=== PATIENT | female | born 1940 | race Caucasian/White ===

== ENCOUNTER 2023-11-16 09:13 | Inpatient (IN) | payer OTHER, SELFPAY ==
[2023-11-12] VITALS (8 sets, daily range): BP systolic 133–201; BP diastolic 72–116; BMI 22.8; BMI 21.6
--- NOTE | 2023-11-12 16:52 | ED.GENMED ---
History of Present Illness
General
Chief Complaint: Fall
Time Seen by Provider: 11/12/23 16:31
Travel History
Have you had any contact with someone who has COVID-19?: No
Do you have any symptoms of coronavirus? Fever > 100 degrees, chills, cough, shortness of breath, sore throat, loss of taste or smell, muscle aches, or headache?: No
History of Present Illness
History of Present Illness:
83-year-old female presents to the emergency department with family after a fall. The fall was unwitnessed but she was apparently walking her dog into a house the injury occurred. The patient can provide no details of the event. She appears quite
anxious but has essentially no recollection of what happened. Family is uncertain if she syncopized versus struck her head with retrograde amnesia. She is not on anticoagulants. She does have quite mild dementia 'Per family. She also reports
right shoulder pain and right wrist pain
Review of Systems
Review of Systems
Allergies reviewed?: Yes
All Other Systems: ROS reviewed and negative except as documented in HPI and ROS
Phy Exam
Physical Exam
Physical Exam:
GEN: Well appearing, NAD, WDWN
Eyes: PERRLA, EOMs intact, no scleral icterus
HENT: NCAT, oral mucosa moist, no JVD, no cervical adenopathy.
Lungs: CTAB, no wheezes, rales, rhonchi, normal chest wall excursion
Cardiac: RRR, no M/R/G, no peripheral edema. Radial pulses 2+ bilat
Abdomen: S, NT, ND, NABS, no masses or hepatosplenomegaly
Neuro: Alert, oriented to baseline per family, confused to year
MSK: No gross deformity or ecchymosis. No obvious injury to the right shoulder, no ecchymosis or swelling. Range of motion elicits pain. No obvious deformities to the wrist bilaterally
Skin: No rashes, petechiae. Normal color, no pallor or jaundice.
Psych: Calm, cooperative, proper hygiene
Course
Orders/Labs/Results
Orders:
Orders
11/12/23 Dinner
Cholesterol Lowering
Cholesterol Lowering: Sodium, 2 Gram
1800 robert/15 CHO Diabetic
11/12/23 16:01
CT Head W/o Iv Contrast Urgent
Comment:
Reason For Exam: fall
11/12/23 16:50
Electrocardiogram (*1) Urgent
Reason for Study: Syncope
EKG- Treatment ONCE
Morphine Sulfate 2 mg IV NOW STA
Ondansetron Injectable [Zofran] 4 mg IV NOW STA
CR Shoulder - Right Min 2 View Urgent
Comment:
Reason For Exam: fall
11/12/23 16:59
Basic Metabolic Panel Urgent
Complete Blood Count/No Diff Urgent
11/12/23 17:26
CR Wrist - Right Min 3 Views Urgent
Reason For Exam: fall
11/12/23 19:29
Urinalysis Reflex To Culture Urgent
Date Specimen was Collected: 11/12/23
Time Specimen was Collected: 19:25
Urine Microscopic Reflex Cult Urgent
11/12/23 19:32
0.9% Sodium Chloride 500 ml [Nss] 500 ml IV BOLUS
11/12/23 20:56
diazePAM [Valium Injection] 1 mg IV NOW STA
11/12/23 22:15
Add On- LAB Urgent
Tests Added?: troponin
CARDIOLOGY CONSULT Routine
Consulting Provider: Wilfred Ramos
Was physician already notified: No
Reason for consult: synocpe versus seizure vs cardiac arrythmia
11/12/23 22:16
Consult Notification Routine
Specialty to Notify: Cardiology
Consult Notification Routine
Specialty to Notify: Neurology
NEUROLOGY CONSULT Routine
Consulting Provider: Damián Johnson
Was physician already notified: No
Reason for consult: synocpe versus seizure vs cardiac arrythmia
11/12/23 22:18
Admit/Transfer Patient As Directed
Co-Sign Provider:
Level of Care: Observation services
Assign to:: Telemetry
Physician / Group: ronny lam
Diagnosis: syncope vs seizure vs cardiac arryt. scalp contusion, thrombocyotpenia
Reason for Telemetry: Arrhythmia
Date to Stop Telemetry: 11/15/23
Time to Stop Telemetry: 11:00
Reason for Hospitalization: syncope vs seizure vs cardiac arryt. scalp contusion, thrombocyotpenia
Code Status As Directed
Resuscitation Status: Do not resuscitate
Reached after discussion with pt or family/Healthcare POA: Yes
Based on pt advanced directive or healthcare POA form: Yes
Decision communicated with: per daughters
11/12/23 22:20
DNR Bracelet Application ONCE
11/12/23 23:00
Flush (0.9% Sodium Chloride) [Flush (Nss)] See Dose Instructions IV PER PROTOCOL
11/12/23 23:18
Acetaminophen [Tylenol] 650 mg PO Q4HPRN PRN
Dextrose 50%-Water [Dextrose 50% Syringe] 12.5 grams IV [id number] PRN
Glucagon [GlucaGen] 1 mg IM PRN PRN
Lorazepam [Ativan] 0.5 mg IV ONCE PRN
11/12/23 23:18
Activity As Directed
Activity Level: With Assistance
Bedside Glucose Monitoring As Directed
Frequency: AC&HS
Additional Instructions:: Change to q6h if pt on TPN, tube feeding or not eating
Neurological Checks As Directed
Frequency: q4h
Orthostatic Vital Signs As Directed
Orthostatic VS Frequency: Daily
Pneumatic Compression Sleeves As Directed
Type: Knee high
Vital Signs As Directed
Frequency: Per unit guidelines
Ot Eval And Treat Routine
Pt Eval And Treat Routine
Activity Level: As Tolerated
DX Deep Vein Thrombosis Video Routine
11/13/23 06:00
EKG [Electrocardiogram (*1)] IN AM
Reason for Study: Syncope
Echo 2D MMode Color/Doppler IN AM
Reason for Study: syncope
EEG Routine IN AM
Reason for Exam: syncope vs seizure
Cardiovascular Evaluation IN AM
Complete Blood Count/With Diff IN AM
Comprehensive Metabolic Panel IN AM
Glycohemoglobin (HgbA1c) IN AM
TSH Reflex To Free T4 IN AM
MRI Brain [MR Brain W/o & With Contrast] IN AM
Comment:
Reason For Exam: syncope
OK for patient to be off Cardiac Monitoring for MRI: Yes
Recent pill cam endoscopy?: No
Pacemaker/Defibrillator?: No
11/13/23 07:30
Insulin Aspart Corrective Low [Novolog Flexpen-Low Resistance] See Protocol SC AC
11/13/23 08:00
Anastrozole [Arimidex] 1 mg PO DAILY
Ascorbic Acid [Vitamin C] 500 mg PO DAILY
Calcium Citrate + D3 950/250mg 1 tablet PO BID
Donepezil HCl [Aricept] 10 mg PO DAILY
vitamin B complex 1 cap PO DAILY
11/13/23 18:00
Cholecalciferol (Vitamin D3) [VITAMIN D3 (cholecalciferol)] 25 mcg PO QPM
11/13/23 22:00
Atorvastatin [Lipitor] 40 mg PO HS
Lisinopril [Zestril] 10 mg PO HS
11/15/23 11:00
DC Protocol for Telemetry ONCE
Abnormal Lab Results
11/12/23 11/12/23
16:59 19:29
RBC 3.93 L 10^6/uL
(4.20-5.40)
Hct 36.5 L %
(37.0-47.0)
MCHC 32.9 L g/dL
(33.0-37.0)
Plt Count 117 L 10^3/uL
(130-400)
MPV 11.9 H fL
(7.4-10.4)
Chloride 108 H mmol/L
(98-107)
BUN 18 H mg/dl
(7-17)
Glucose 136 H mg/dl
(70-99)
Urine Ketones 1+ A
(Negative)
Leukocyte Esterase Rfl Trace A
(Negative)
11/12/23 16:59
11/12/23 16:59
Vital Signs
Initial and Last Documented VS:
Initial Vital Signs
Temp Pulse Resp BP Pulse Ox
98.1 F 90 20 201/116 99
11/12/23 15:55 11/12/23 15:55 11/12/23 15:55 11/12/23 15:55 11/12/23 15:55
Last Documented Vital Signs
Temp Pulse Resp BP Pulse Ox
98.1 F 90 18 149/92 93
11/12/23 15:55 11/12/23 20:42 11/12/23 20:42 11/12/23 23:00 11/12/23 23:00
MDM/Problems Addressed
MDM/Problems Addressed:
Patient's trauma workup is unremarkable and labs are reassuring. However on multiple attempts at reassessment the patient is unable to get herself to a standing position. She reports feeling dizzy and nauseated whenever she sits in an upright
position. She does not have any obvious nystagmus to suggest vertigo. Unclear cause, could be postconcussive in nature. Ultimately she is not suitable for discharge home thus we will admit to the hospitalist service for further management
*Critical Care Note
Total Time (30-74mins, 75-104mins- exclusive of procedures): Not Applicable
ED Attending Note
-
Portions of this chart may have been created with voice recognition software.� Occasional wrong word or��sound alike� substitutions may have occurred due to the inherent limitations of voice recognition software.
Discharge Plan
Departure
Patient Disposition: Admit
Date of Disposition: 11/12/23
Time of Disposition: 21:41
Admit to: Med/Surg
Presentation/result/management discussed w/ accepting MD/DO: Hospitalist
Discharge Problem:
Ambulatory dysfunction, Unwitnessed fall, Closed head injury
Interventions
Interventions:
*Risk Screen - Suicide Last Done: 11/12/23 15:55
*General Assessment Last Done: 11/12/23 15:55
*Neglect/Abuse Screening Last Done: 11/12/23 15:55
ED- Fall Risk Assessment Last Done: 11/12/23 18:18
ED-Musculoskeletal Assessment Last Done: 11/12/23 18:18
ED- Neurological Assessment Last Done: 11/12/23 18:18
ED-Skin Assessment Last Done: 11/12/23 18:18
[2023-11-12] MEDS: MORPHINE SULFATE 2 MG IV (17:03)
[2023-11-12] MEDS: ZOFRAN 4 MG IV (17:03)
[2023-11-12 17:17] LABS: Hematocrit 36.5 % (37.0-47.0); Mean Corp Hgb Conc. 32.9 g/dL (33.0-37.0); Mean Corpuscular Hgb 30.5 pg (27.0-31.0); Mean Corpuscular Volume 92.9 fL (81.0-99.0); Mean Platelet Volume 11.9 fL (7.4-10.4); Platelet Count 117 10^3/uL (130-400); Red Blood Cell Count 3.93 10^6/uL (4.20-5.40); Red Cell Dist. Width 13.9 % (11.5-14.5)
[2023-11-12 17:38] LABS: Blood Urea Nitrogen 18 mg/dl (7-17); Carbon Dioxide 22 mmol/L (22-30); Chloride 108 mmol/L (98-107); Estimated Creatinine Clearance 67 ml/min; Glucose 136 mg/dl (70-99); Sodium 140 mmol/L (135-145); eGFR > 60.00
[2023-11-12] MEDS: NSS 500 IV (19:40)
[2023-11-12 19:49] LABS: Urine Albumin Trace (Neg - Trace); Urine Bilirubin Negative (Negative); Urine Character Clear (Clear); Urine Color Yellow; Urine Glucose Negative (Negative); Urine Ketone 1+ (Negative); Urine Leukocyte Trace (Negative); Urine Nitrite Negative (Negative); Urine Occult Blood Negative (Negative); Urine Specific Gravity 1.015 (<1.030); Urine Urobilinogen Negative (Neg - 1+)
[2023-11-12 20:11] LABS: Urine Red Blood Cell 0-2 /HPF (0-2); Urine White Cell 0-2 /HPF (0-5)
[2023-11-12] MEDS: VALIUM INJECTION 1 MG IV (21:03)
--- NOTE | 2023-11-12 21:53 | HPS.HSE ---
Family Physician
-
Family Physician: NOT KNOW UNKNOWN - PT DOES
Chief Complaint
-
fall unwintessed syncope
History of Present Illness
83-year-old female who took a 48-hour drive from [facility]. Upon parking she got out of the car walking around with the dog. Her daughter heard a thump. Her son run to the back of the car found the mother with eye rolling, confusion lasting
approximate 45 seconds. He also noticed left pupil dilation and some mild blood to the tip of her tongue. He reports her confusion improved within about 45 seconds she was able to answer her name and where she was at. They were unaware if she had
any urinary incontinence. Patient currently is oriented to name and daughters at bedside she is also oriented to current residence and car ride today although does not remember syncopal event. Patient denies current headache, blurred vision,
fever, chills, chest pain, palpitations, shortness breath, cough, abdominal pain, nausea, vomiting, diarrhea, urinary symptoms. She has past medical history of hypertension, HLD, DM2, breast cancer, moderate dementia.
Medical History
Past Medical History
Past Medical History: Reports Other
Additional Past Medical History:
hypertension, HLD, DM2, breast cancer, moderate dementia.
Past Surgical History: Reports Other
Additional Past Surgical History:
Rotator cuff, knee surgery
Social History
Tobacco: Former Smoker
Alcohol: None
Drug: None
Personal: Single
Living: With Family
Employment: Retired
Family History
Family History: Not pertinent
Allergies / Home Medications
Allergies reflects when Allergies were last updated in [employer].
Home Medications with original date entered in [employer]
Allergy/Medication List:
Allergies
Allergy/AdvReac Type Severity Reaction Status Date / Time
No Known Allergies Allergy Verified 11/12/23 16:00
Home Medications
Calcium Citrate + D3 950/250mg 1 tab PO BID 11/12/23
acetaminophen 650 mg tablet,extended release 650 mg PO [id number] PRN mild pain 11/12/23
anastrozole 1 mg tablet 1 mg PO DAILY 11/12/23
ascorbic acid (vitamin C) 500 mg tablet (Vitamin C With Karlie Hips) 500 mg PO DAILY 11/12/23
atorvastatin 40 mg tablet 40 mg PO HS 11/12/23
cholecalciferol (vitamin D3) 25 mcg (1,000 unit) tablet (Vitamin D3) 25 mcg PO QPM 11/12/23
donepezil 10 mg tablet 10 mg PO DAILY 11/12/23
lisinopril 10 mg tablet 10 mg PO HS 11/12/23
metformin 500 mg tablet 1,000 mg PO BID 11/12/23
vitamin B complex 1 cap PO DAILY 11/12/23
vitamin E 268 mg (400 unit) capsule 268 mg PO QPM 11/12/23
Review of Systems
-
History Source: Patient and Family (Daughters at bedside, son on phone)
Constitutional: Denies Fever, Fatigue or Chills
EENT: Reports Other (Slight bite to right side of tongue, anisocoria left eye 2.5 mm, right eye 2 mm, posterior scalp contusion); Denies Sore Throat
Respiratory: Denies Cough or Trouble Breathing
Cardiac: Reports Syncope; Denies Chest Pain, Diaphoresis or Palpitations
Abdomen/GI: Denies Abdominal Pain, Nausea, Vomiting, Diarrhea, Constipated, Bloody Stools or Black Stools
: Denies Dysuria, Frequency, Flank Pain, Incontinence, Difficulty Voiding or Urgency
Musculoskeletal: Denies Joint Pain or Edema
Skin: Denies Itching or Rash
Neurological: Denies Dizzy or Headache
Endocrine: Reports No Symptoms
Hematologic/Lymphatic: Reports No Symptoms
Psych: Reports Calm
Physical Exam
Vital Signs
Vital Signs
Temp Pulse Resp BP Pulse Ox
98.1 F 90 20 201/116 99
11/12/23 15:55 11/12/23 15:55 11/12/23 15:55 11/12/23 15:55 11/12/23 15:55
Physical Exam
General: Comfortable and Conversant; No Pain or Fever
HEENT: NormoCephalic, Anicteric, PERRLA (anisocoria left eye 2.5 mm, right eye 2 mm), [place] Conjunctivae, No Ptosis and Other (Slight bite to right side of tongue, anisocoria left eye 2.5 mm, right eye 2 mm, posterior scalp contusion)
Respiratory: Clear; No Wheezes, Rales or Rhonchi
Cardiac: S1/S2 and Regular Rhythm; No Murmur, Rub, Gallop or Peripheral Edema
GI: Soft, Non Tender, Non Distended, Normal Bowel Sounds and No Hepatosplenomegaly
Genito-urinary: Deferred by me
Musculoskeletal: No Clubbing, No Cyanosis and No Edema
Skin: Warm and Dry; No Rash
Neuro: Awake, Alert, Oriented (To name, family, drives but not recent fall) and Cranial Nerves Intact; No Slurred Speech, Facial Droop or Tremors
Psych: Calm
Laboratory Results
-
11/12/23 16:59
11/12/23 16:59
Laboratory Results
Total Bilirubin Cancelled 11/12/23 16:59
AST Cancelled 11/12/23 16:59
ALT Cancelled 11/12/23 16:59
Alkaline Phosphatase Cancelled 11/12/23 16:59
Data Reviewed
-
CT Scan: Report Reviewed by me
Lab Data: Labs Reviewed by me
Impression/Plan
-
Impression/plan:
Observation telemetry
#Unwitnessed fall with scalp hematoma concern for syncope/ vs seizure versus cardiac arrhythmia given multiple PVCs
-Check orthostatic vitals
- trend troponin, check tsh
-EEG
-2D echo
-MRI brain with and without
-IV Ativan prior to MRI as patient is claustrophobic
-Consult neurology
-Consult cardiology
-PT/OT/case send consult
EKG: Sinus rhythm with PVCs 98 bpm, QTc [address] head: No acute intracranial abnormalities
Moderate diffuse cortical atrophy with moderate nonspecific white matter changes
Small midline posterior parietal scalp hematoma
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 Severe narrowing the subacromial space suggesting presence of rotator cuff pathology
Right wrist x-ray: No acute abnormalities, degenerative OA
#HTN�benign
201/116 > 134/91 when patient calm down
Continue lisinopril 10 mg daily
#DM 2
-Accu-Cheks SSI, check HgbA1c
-Hold metformin
#Acute thrombocytopenia unclear
PLT 117
follow cbc
#Dementia Hx-moderate Dx October 2022
-Continue Aricept/donepezin 10 mg daily
#HLD
check lipid profile
-Continue Lipitor 40 mg at bedtime
#Breast CA
-Patient on current tamoxifen
DVT prophylaxis
SCDs
DNR per daughter at bedside
--- NOTE | 2023-11-12 22:12 | W.PN.UPDATE ---
Update Note
Progress Note Update
This is an addendum to the H&P written by Tri Lau on 11/12/2023. Patient seen examined independently with [employer]ER.
83-year-old female past medical history moderate dementia, hypertension, diabetes, breast cancer presenting with syncopal episode while walking. Patient has no memory of the event. She was unresponsive for 45 seconds and quickly returned to normal
mental status. Son noticed left pupillary dilation, unclear if new. Patient did have tongue biting. Patient with no chest pain or shortness of breath. No prior syncopal episodes or history of seizures.
On examination patient has subtle left pupil dilation compared to right. Blood pressure initially 200 but this has spontaneously improved. Labs unremarkable. EKG shows significant number of PVCs. Syncopal episode possibly secondary to cardiac
arrhythmia versus partial seizure. Check echocardiogram, EEG, MRI brain, neurology and cardiology.
--- NOTE | 2023-11-12 23:30 | PTCARENOTE ---
Late Entry 11/12/23 0729 - Received patient from ED accompanied by her daughter. Patient was transferred directly from the stretcher to the bed. Patient had fall at home and has pain in back of head and right shoulder. Patient assessed. Patient was
medicated with Tylenol as requested. Patient on monitor in SR with 1st degree AV Block. VSS. Patient oriented to the unit. Patient verbalized an understanding to ring for all transfers. Bed alarm placed for safety. Call demarco in reach.
[2023-11-12 23:39] LABS: Troponin I 0.293 ng/ml
[2023-11-13] VITALS (7 sets, daily range): BP systolic 126–165; BP diastolic 70–92; PULSE 71–84; BMI 21.6
[2023-11-13] MEDS: TYLENOL 650 MG PO ×3 (00:06→10:15)
--- NOTE | 2023-11-13 00:42 | PTCARENOTE ---
Advised covering provider ROBBIN Aleman of positive Troponin result 0f 0.293 at 2353. Patient denies chest pain, VSS. Troponin series and EKG in AM are in place.
[2023-11-13 00:44] LABS: Glucose - Point of Care 133 mg/dl (70-99)
[2023-11-13 07:22] LABS: % Basophils 0.4 % (0-2); % Eosinophils 1.3 % (0-6); % Immature Granulocytes 0.4 % (0-0.5); % Lymphocytes 24.9 % (20.5-51.1); % Monocytes 6.8 % (1.7-9.3); % Neutrophils 66.2 % (42.2-75.2); Absolute Eosinophils 0.1 10^3/uL (0-0.7); Absolute Lymphocytes 1.7 10^3/uL (1.2-3.4); Absolute Monocytes 0.5 10^3/uL (0.1-0.6); Absolute Neutrophils 4.5 10^3/uL (1.4-6.5); Hematocrit 34.3 % (37.0-47.0); Mean Corp Hgb Conc. 32.1 g/dL (33.0-37.0); Mean Corpuscular Hgb 30.8 pg (27.0-31.0); Mean Corpuscular Volume 96.1 fL (81.0-99.0); Nucleated Red Blood Cells % 0 %; Platelet Count 111 10^3/uL (130-400); Red Blood Cell Count 3.57 10^6/uL (4.20-5.40); Red Cell Dist. Width 13.8 % (11.5-14.5); White Blood Cell Count 6.8 10^3/uL (4.8-10.8)
[2023-11-13 07:44] LABS: Troponin I 0.253 ng/ml
[2023-11-13 07:46] LABS: Glucose - Point of Care 108 mg/dl (70-99)
[2023-11-13] MEDS: NOVOLOG FLEXPEN-LOW RESISTANCE SC ×3 (07:58→16:45)
[2023-11-13 08:13] LABS: ALT (SGPT) 20 U/L (0-35); AST (SGOT) 32 U/L (14-36); Albumin 3.7 g/dl (3.5-5.0); Alkaline Phosphatase 48 U/L (38-126); Blood Urea Nitrogen 16 mg/dl (7-17); Calcium 9.4 mg/dl (8.4-10.2); Carbon Dioxide 23 mmol/L (22-30); Chloride 107 mmol/L (98-107); Estimated Creatinine Clearance 57 ml/min; Glucose 97 mg/dl (70-99); HDL Cholesterol 47 mg/dl; LDL Cholesterol, Calculated 61 mg/dl; Potassium 4.4 mmol/L (3.5-5.1); Sodium 138 mmol/L (135-145); Total Bilirubin 1.1 mg/dl (0.2-1.3); Total Cholesterol 127 mg/dl (50-199); Triglyceride 99 mg/dl (10-149); Very Low Density Lipoprotein 19 mg/dl (0-30); eGFR > 60.00
--- NOTE | 2023-11-13 08:43 | CON.NEURO ---
Neuro Assessment/Plan
Assessment
IMPRESSIONS/RECOMMENDATIONS:
Abrupt onset fall with suggested seizure-like activity and mild pupillary asymmetry with greater pupillary size on the left than on the right by 1 mm
Differential diagnosis would include convulsive syncope as well as new onset seizure
Plan
Check orthostatic blood pressures
Check lab work for potential metabolic abnormalities
Will follow MRI of brain results
Not clear at this time patient would benefit from EEG based on new discovery of myocardial infarction which may have produced convulsive syncope
Would not at this time initiate antiseizure medication
Based on discovery of possible myocardial infarction, okay from neurology standpoint to initiate heparin without bolus
May continue donepezil at this time although reconsideration of this medication based on the patient's possible seizure may be given
Will continue to follow pending results.
Consultation
Order
Date of Consultation: 11/13/23
Requesting Provider: Hospitalist
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
Subjective/Objective
Subjective Data
Date of Service: November 13, 2023
Right-Handed
Patient presented to this emergency department after a fall. The patient had no recall for the event. The patient reportedly was in her usual state of health until falling to the ground with eye rolling and subsequent confusion lasting for 45
seconds afterwards. Patient's family noted that there was an asymmetry of pupils with the left pupil 1 mm larger than the contralateral side. There is no urinary incontinence at the time. Reportedly the patient no associated symptoms although
there is a suggestion that there was a tongue bite at the tip of the tongue. Subsequently, after presenting to this hospital's emergency department, the patient was described as having right arm shaking intermittently over an hour with stress
making the shaking more likely. No prior events. No known modifying factors. The patient had been traveling for approximately 4 hours by car immediately prior to the event.
Patient has a prior history of dementia treated by her primary care provider with the use of donepezil. The last increase in this medication took place in March 2023.
Objective Data
Vital Signs
Temp Pulse Resp BP Pulse Ox
36.8 C 66 16 159/81 98
11/13/23 07:25 11/13/23 07:25 11/13/23 07:25 11/13/23 07:25 11/13/23 07:25
Lab Results
11/13/23 06:18
11/13/23 06:18
Sodium 138 mmol/L (135-145) 11/13/23 06:18
Potassium 4.4 mmol/L (3.5-5.1) 11/13/23 06:18
BUN 16 mg/dl (7-17) 11/13/23 06:18
Glucose 97 mg/dl (70-99) 11/13/23 06:18
Calcium 9.4 mg/dl (8.4-10.2) 11/13/23 06:18
LDL Cholesterol, Calc 61 mg/dl 11/13/23 06:18
Patient Allergies
No Known Allergies Allergy (Verified 11/12/23 16:00)
Review of Systems
-
Unable to obtain full review of systems at this time due to: Dementia
History Source: Patient and Family
All other systems: Reviewed and negative
Neuro: Dizzy (Described as taking place during orthostatic evaluation.); Negative Headache
Physical Exam
-
General: No Apparent Distress and Appears Stated Age
Eyes: OU Absent Papilledema, Round OU, [place] Conjunctivae and No Ptosis
HEENT: Anicteric and Moist Mucous Membranes
Neck: Full Range of Motion
Respiratory: No Dyspnea
Cardiac: No JVD
GI: Non-distended
Skin: Unremarkable
Extremities: No Clubbing, No Cyanosis and No Edema
Psych: Intact Judgement/Insight
Extended Neurological Exam
Mood & Affect: Mood Unremarkable and Affect Unremarkable
Attention Span & Concentration: Awake, Alert, Interactive and Moderate Difficulty with 2 Step Request
Memory: Able to Recall (Current location), Reduced (For current month. Unable to recall the year) and Unable to Recall Personal History
Tremor: Hand Tremor Absent and Head Tremor Absent
Involuntary Movement: None
Speech: Quality Unremarkable and Quantity Unremarkable
Cranial Nerve II: Left Eye: Pupillary Reactivity Unremarkable, Pupillary Size Unremarkable and Visual Fabian Intact
Cranial Nerve II: Right Eye: Pupillary Reactivity Unremarkable, Pupillary Size Unremarkable, Visual Fabian Intact and Smaller than Contralateral (By approximately 1 mm)
Cranial Nerves III, IV, : Extraocular Movement: Extraocular Movement Full in all Directions and No Ptosis
Cranial Nerve VII: Facial Symmetry: Normal Facial Symmetry
Cranial Nerve VIII: Hearing: Unremarkable Hearing to Normal Conversational Volume
Cranial Nerves IX, X: Palate Movement: Palate Elevation Symmetric
Cranial Nerve XI: Shoulder Shrug: Unremarkable
Cranial Nerve XII: Tongue Protusion: Midline
Muscle Strength, Overall: Full Throughout
Muscle Bulk & Tone: Bulk Unremarkable and Tone Unremarkable
Pronator Drift: No Drift in Upper Extremities
Deep Tendon Reflexes: Trace Throughout
Touch Sensation: Unremarkable
Coordination: [id number] Testing Unremarkable
Babinski Sign: Absent Bilaterally
Data Reviewed
-
Orthostatic Testing: Ordered and Report Reviewed
Labs: Report Reviewed
Reviewed with: Physician, Patient and Family
Old Records: Summarized
Medications
-
Active Medications
Generic Name Dose Route Start Last Admin
Trade Name Freq PRN Reason Stop Dose Admin
Acetaminophen 650 mg 11/12/23 23:18 11/13/23 05:16
Acetaminophen 325 Mg Tablet PO 12/10/23 23:17 650 mg
Q4HPRN PRN Administration
mild pain/MOONEY/temp> 100.4F
Anastrozole 1 mg 11/13/23 08:00
Anastrozole 1 Mg Tablet PO 12/11/23 07:59
DAILY KAMRON
Ascorbic Acid 500 mg 11/13/23 08:00
Ascorbic Acid 500 Mg Tablet PO 12/11/23 07:59
DAILY KAMRON
Atorvastatin Calcium 40 mg 11/13/23 22:00
Atorvastatin (Lipitor) 40 Mg Tablet PO 12/11/23 21:59
HS KAMRON
Calcium/Vitamin D 500 mg 11/13/23 08:00
Calcium Carbonate 500 Mg/Vitamin D 5 Mcg (200 Units) Tablet PO 12/11/23 07:59
BID KAMRON
Cholecalciferol 25 mcg 11/13/23 18:00
Cholecalciferol (Vitamin D3) 25 Mcg Tablet (1,000 Units) PO 12/11/23 17:59
QPM KAMRON
Dextrose 12.5 grams 11/12/23 23:18
Dextrose 50% (0.5 Grams/Ml) 50 Ml Syringe IV 12/10/23 23:17
[id number] PRN
hypoglycemia
Protocol
Donepezil HCl 10 mg 11/13/23 08:00
Donepezil Hcl 10 Mg Tablet PO 12/11/23 07:59
DAILY KAMRON
Glucagon 1 mg 11/12/23 23:18
Glucagon 1 Mg Vial IM 12/10/23 23:17
PRN PRN
hypoglycemia
Protocol
Insulin Aspart 0 units 11/13/23 07:30 11/13/23 07:58
Insulin Aspart Low Resistance 300 Units/3 Ml Pen.Injctr SC 12/11/23 07:29 Not Given
AC KAMRON
Protocol
Lisinopril 10 mg 11/13/23 22:00
Lisinopril 10 Mg Tablet PO 12/11/23 21:59
HS KAMRON
Lorazepam 0.5 mg 11/12/23 23:18
Lorazepam 2 Mg/Ml Vial IV 12/10/23 23:17
ONCE PRN
regional commercial sales manager to MRI
Sodium Chloride 0 flush 11/12/23 23:00
Sodium Chloride 0.9% (Flush) Syringe IV 12/10/23 22:59
PER PROTOCOL KAMRON
Sodium Chloride 0.25 ml 11/12/23 23:23
Nss (Pf) 10 Ml Vial For Ativan 0.5 Mg Dose IV
ONCE PRN
FOR MRI
Vitamin B Complex/Vitamin C 1 caplet 11/13/23 08:00
Vitamin B Complex With Vitamin C Caplet PO 12/11/23 07:59
DAILY KAMRON
Home Medications
�Medication �Instructions �Recorded
Calcium Citrate + D3 950/250mg 1 tab PO BID 11/12/23
acetaminophen 650 mg 650 mg PO [id number] PRN mild pain 11/12/23
tablet,extended release
anastrozole 1 mg tablet 1 mg PO DAILY 11/12/23
ascorbic acid (vitamin C) 500 mg 500 mg PO DAILY 11/12/23
tablet (Vitamin C With Karlie Hips)
atorvastatin 40 mg tablet 40 mg PO HS 11/12/23
cholecalciferol (vitamin D3) 25 25 mcg PO QPM 11/12/23
mcg (1,000 unit) tablet (Vitamin
D3)
donepezil 10 mg tablet 10 mg PO DAILY 11/12/23
lisinopril 10 mg tablet 10 mg PO HS 11/12/23
metformin 500 mg tablet 1,000 mg PO BID 11/12/23
vitamin B complex 1 cap PO DAILY 11/12/23
vitamin E 268 mg (400 unit) capsule 268 mg PO QPM 11/12/23
[2023-11-13 09:41] LABS: Glycohemoglobin (HgbA1c) 5.5 % (4.0-5.6)
--- NOTE | 2023-11-13 09:48 | W.PN.HOSP.TC ---
Today's Communication/Plan
-
Heparin Drip started
Cardiac cath planned for Wednesday
Assessment / Plan
Assessment / Plan
Physical Exam
General: Not in acute distress
HEENT: Normocephalic
Respiratory: Clear to Auscultation Bilaterally
Cardiac: S1/S2 and Regular Rhythm
GI: Soft, Non Tender, Non Distended, Normal Bowel Sounds
Musculoskeletal: No Cyanosis and No Edema
Skin: Warm and Dry
Neuro: Awake, Alert, Reduced memory, PERRL. Cranial Nerves 2 through 12 grossly intact (however some visual field deficit on the right side). Strength and sensation grossly intact bilaterally. Heel to dee intact bilaterally.
Psych: Calm
Assessment/Plan
#Unwitnessed fall with scalp hematoma syncope/versus seizure versus cardiac arrhythmia given multiple PVCs
#Inferoseptal Akinesis on Echocardiogram
-Possibly myocardial infarction resulting syncope
-Heparin Drip started after discussion with cardiology and neurology: okay to start without a bolus
-Previously reported to have anisocoria and tongue biting and SBP 200 mmHg
-Check orthostatic vitals signs
-EEG
-2D echo results are noted
-MRI brain with and without
-IV Ativan prior to MRI as patient is claustrophobic
-Consulted neurology, recommendations appreciated
-Consulted cardiology, recommendations appreciated
-PT/OT/case send consult
#Mild mitral stenosis on echocardiogram
#Hypertension
201/116 > 134/91 when patient calm down
Continue lisinopril 10 mg daily
#DM 2
-Accu-Cheks SSI, check HgbA1c
-Hold metformin
#Acute thrombocytopenia unclear
PLT 117
follow cbc
#Dementia Hx-moderate Dx October 2022
-Continue Aricept/donepezin 10 mg daily
#HLD
checked lipid profile
-Continue Lipitor 40 mg at bedtime
#Breast CA
-Patient on current tamoxifen
DVT prophylaxis
SCDs
DNR
Spoke to patient's daughter today inside patient's room.
Anticipated Discharge: > 48 hours
Subjective/Interval History
-
Date of Service: November 13, 2023
Patient was seen and examined. No significant pain or lightheadedness at rest when she was seen.
Objective Data
-
Labs:
Laboratory Results
11/13/23
06:18
WBC 6.8
Hgb 11.0 L
Hct 34.3 L
Plt Count 111 L
Sodium 138
Potassium 4.4
Chloride 107
Carbon Dioxide 23
BUN 16
Creatinine 0.7
Glucose 97
Calcium 9.4
Total Bilirubin 1.1
AST 32
ALT 20
Alkaline Phosphatase 48
Vital Signs:
Vital Signs
Temp Pulse Resp BP Pulse Ox
98.2 F 66 16 159/81 98
11/13/23 07:25 11/13/23 07:25 11/13/23 07:25 11/13/23 07:25 11/13/23 07:25
--- NOTE | 2023-11-13 10:03 | CON.CAR ---
Consultation
Consultation Request
Date/Time Consultation Requested: 11/13/2023
Date/Time Consultation Performed: 11/13/2023
Requesting Provider: Dr. Pillai
Performing Provider: Dr. Ramos
Reason for Consultation: Syncope
Medical History
-
Chief Complaint: Syncope
History of Present Illness:
83-year-old female with hypertension, hyperlipidemia, diabetes, previous right breast cancer, and moderate dementia presenting after syncopal episode after driving with her family for 4-1/2 hours from [place], [place]. After the car ride (she was riding
in the backseat), she got out of the car with the dog and her family heard a thud at the back of the car and found her on the ground. She had no prodromal symptoms and does not recall the event. There was tongue biting noted, causing concern for
possible seizure. The patient lives in [place], [place], and is here visiting for her granddaughter's baby shower tomorrow afternoon. The patient plans on returning back home tomorrow evening after the baby shower. The patient denies any chest pain,
shortness of breath, palpitations, lower extremity swelling, or previous syncopal events; she has no previous true cardiac history. The patient was found to have frequent PVCs on her EKG; Cardiology consulted. Patient's blood pressure on admission
was 201/116 mmHg.
Past Medical History
Past Medical History: HTN, Hypercholesterolemia and NIDDM
Past Surgical History: Other (Breast cancer excision)
Social History
Tobacco: Former Smoker (Remote)
Alcohol: None
Drug: None
Living: With Family
Employment: Retired
Family History
Family History: Reviewed & Not Pertinent
Allergies / Home Medications
Allergy/AdvReac Type Severity Reaction Status Date / Time
No Known Allergies Allergy Verified 11/12/23 16:00
�Medication �Instructions �Recorded �Confirmed �Type
Calcium Citrate + D3 950/250mg 1 tab PO BID Supplement 11/12/23 11/12/23 History
acetaminophen 650 mg 650 mg PO [id number] PRN mild pain 11/12/23 11/12/23 History
tablet,extended release
anastrozole 1 mg tablet 1 mg PO DAILY BREAST CANCER 11/12/23 11/12/23 History
ascorbic acid (vitamin C) 500 mg 500 mg PO DAILY Supplement 11/12/23 11/12/23 History
tablet (Vitamin C With Karlie Hips)
atorvastatin 40 mg tablet 40 mg PO HS Supplement 11/12/23 11/12/23 History
cholecalciferol (vitamin D3) 25 25 mcg PO QPM Supplement 11/12/23 11/12/23 History
mcg (1,000 unit) tablet (Vitamin
D3)
donepezil 10 mg tablet 10 mg PO DAILY Neurological 11/12/23 11/12/23 History
Condition
lisinopril 10 mg tablet 10 mg PO HS Blood Pressure 11/12/23 11/12/23 History
metformin 500 mg tablet 1,000 mg PO BID Diabetes 11/12/23 11/12/23 History
vitamin B complex 1 cap PO DAILY Supplement 11/12/23 11/12/23 History
vitamin E 268 mg (400 unit) capsule 268 mg PO QPM Supplement 11/12/23 11/12/23 History
Review of Systems
-
Unable to obtain full review of systems at this time due to: Dementia
History Source: Family (Daughter (Vanessa) at bedside this morning)
Physical Exam
Vital Signs
Temp Pulse Resp BP Pulse Ox
98.2 F 66 16 159/81 98
11/13/23 07:25 11/13/23 07:25 11/13/23 07:25 11/13/23 07:25 11/13/23 07:25
Lab Results
11/13/23 06:18
11/13/23 06:18
Troponin I 0.253 ng/ml H* 11/13/23 06:18
Physical Exam
General: No Apparent Distress and Comfortable
HEENT: Anicteric
Respiratory: Clear
Cardiac: Regular Rhythm and Murmur (3/6)
Breast: Deferred by me
GI: Soft
Rectal: Deferred by Provider
Musculoskeletal: No Clubbing, No Cyanosis and No Edema
Skin: Warm and Dry
Neuro: Awake and Alert
Psych: Calm
Impression / Plan
-
83-year-old female with hypertension, hyperlipidemia, diabetes, previous right breast cancer, and moderate dementia presenting after syncopal episode after driving with her family for 4-1/2 hours from [place], [place]. After the car ride (she was riding
in the backseat), she got out of the car with the dog and her family heard a thud at the back of the car and found her on the ground. She had no prodromal symptoms and does not recall the event. There was tongue biting noted, causing concern for
possible seizure. The patient lives in [place], [place], and is here visiting for her granddaughter's baby shower tomorrow afternoon. The patient plans on returning back home tomorrow evening after the baby shower. The patient denies any chest pain,
shortness of breath, palpitations, lower extremity swelling, or previous syncopal events; she has no previous true cardiac history. The patient was found to have frequent PVCs on her EKG; Cardiology consulted. Patient's blood pressure on admission
was 201/116 mmHg.
Syncope:
-Etiology unclear; differential diagnosis includes cardiac dysrhythmia versus seizure.
-Neurology consulted.
-Will obtain an echocardiogram today, given 3/6 systolic murmur auscultated on examination.
-gambling monitor revealed occasional PACs and blocked PACs (longest R-R interval 1.9 seconds).
-Continue monitor technician; patient is eager to go home tomorrow morning, if possible, to go to her granddaughter's baby shower and then to get back home in [place], [place].
Heart murmur:
-Will obtain echocardiogram today as above.
PACs/PVCs:
-gambling monitor.
Hypertension:
-The patient was hypertensive on admission with a blood pressure of 201/116 mmHg; now controlled.
-Continue current dose of lisinopril.
Hyperlipidemia:
-Continue current dose of atorvastatin.
Diabetes:
-On metformin; management as per primary team.
Data Reviewed
-
EKG: Tracing Personally Visualized and interpreted (EKG --sinus rhythm with occasional PVCs; Telemetry--occasional PVCs and blocked PACs)
CT Scan: Report Reviewed by me (No acute intracranial abnormality.)
Labs: Labs Reviewed by me and Discussed with Family (Daughter, Vanessa, at bedside.)
[2023-11-13] MEDS: B COMPLEX w/VITAMIN C 1 CAPLET PO (10:11)
[2023-11-13] MEDS: OSCAL 500 + D 500 MG PO ×2 (10:11→20:35)
[2023-11-13] MEDS: VITAMIN C 500 MG PO (10:12)
[2023-11-13] MEDS: ARIMIDEX 1 MG PO (10:12)
[2023-11-13] MEDS: ARICEPT 10 MG PO (10:12)
[2023-11-13 10:46] LABS: Erythrocyte Sed Rate 9 mm/hour (0-20)
[2023-11-13 11:10] LABS: Folate > 20.0 ng/ml (2.76-20); Vitamin B12 667 pg/ml (239-931)
[2023-11-13 11:43] LABS: Troponin I 0.348 ng/ml
[2023-11-13 11:45] LABS: Glucose - Point of Care 136 mg/dl (70-99)
[2023-11-13] MEDS: TOPROL XL 25 MG PO (11:52)
[2023-11-13] MEDS: LOW STRENGTH ASPIRIN 324 MG PO (11:52)
[2023-11-13] MEDS: ATIVAN 0.5 MG IV (11:53)
[2023-11-13] MEDS: FLUSH (NSS) 2 FLUSH IV (11:55)
[2023-11-13] MEDS: JARDIANCE 10 MG PO (12:05)
[2023-11-13 12:12] LABS: Hematocrit 34.3 % (37.0-47.0); Hemoglobin 11.4 g/dL (12.0-16.0); Mean Corp Hgb Conc. 33.2 g/dL (33.0-37.0); Mean Corpuscular Volume 93.2 fL (81.0-99.0); Mean Platelet Volume 11.6 fL (7.4-10.4); Platelet Count 122 10^3/uL (130-400); Red Blood Cell Count 3.68 10^6/uL (4.20-5.40); Red Cell Dist. Width 13.7 % (11.5-14.5); White Blood Cell Count 8.2 10^3/uL (4.8-10.8)
[2023-11-13 12:22] LABS: APTT 29.3 Sec (23.4-35.0)
--- NOTE | 2023-11-13 12:42 | CM ---
Initial assessment completed with patient and daughter, Vanessa. Patient lives alone in a 1 story home with basement and 3 steps to enter, Patient has DME in home from her father but it is packed away and she does not recall what type of DME, no
in-home services, [employer] patient was independent and drove, no psychiatric hospitalizations. After discharge patient will reside with her daughter Vanessa until she is able to live alone again. She will use [facility] [address] in [place] for pharmacy and her
PCP is Dr. Peterson.
Patient lives in [place], [place] and will be staying with her daughter Vanessa after discharge. Vanessa's address and phone # is as follows:
[address] [place] [address]
SURAJ Torrez [id number]
[phone]
[2023-11-13] MEDS: HEPARIN 25000 UNITS/250 ML IV (15:06)
[2023-11-13 16:39] LABS: Glucose - Point of Care 122 mg/dl (70-99)
[2023-11-13] MEDS: VITAMIN D3 (cholecalciferol) 25 MCG PO (17:41)
[2023-11-13 21:11] LABS: APTT 70.6 Sec (23.4-35.0)
[2023-11-13 21:30] LABS: Glucose - Point of Care 83 mg/dl (70-99)
[2023-11-13] MEDS: ZESTRIL 10 MG PO (22:49)
[2023-11-13] MEDS: LIPITOR 40 MG PO (22:49)
[2023-11-14] VITALS (7 sets, daily range): BP systolic 84–171; BP diastolic 50–91
--- NOTE | 2023-11-14 00:16 | PTCARENOTE ---
Addendum entered by Russ Mills RN 11/14/23 01:43:
Patient had Stat Labs and Ativan 0.5mg PO. Pt is sleeping at this time in no apparent distress. Advised ROBBIN Gutierrez.
Original Note:
Patient having 8/10 left upper chest pain under breast. ROBBIN Gutierrez on floor assessing.
[2023-11-14] MEDS: ATIVAN 0.5 MG PO (00:23)
--- NOTE | 2023-11-14 00:30 | PTCARENOTE ---
Stat EKG was reviewed by ROBBIN Gutierrez.
[2023-11-14 01:33] LABS: ALT (SGPT) 23 U/L (0-35); AST (SGOT) 41 U/L (14-36); Alkaline Phosphatase 64 U/L (38-126); Blood Urea Nitrogen 15 mg/dl (7-17); Calcium 10.1 mg/dl (8.4-10.2); Carbon Dioxide 25 mmol/L (22-30); Chloride 103 mmol/L (98-107); Estimated Creatinine Clearance 57 ml/min; Glucose 105 mg/dl (70-99); Magnesium 1.6 mg/dl (1.6-2.3); Potassium 3.9 mmol/L (3.5-5.1); Sodium 137 mmol/L (135-145); Total Bilirubin 1.4 mg/dl (0.2-1.3); Total Protein 6.5 g/dl (6.3-8.2); eGFR > 60.00
--- NOTE | 2023-11-14 01:40 | W.PN.UPDATE ---
Update Note
Progress Note Update
Notified by nursing that patient anxious and having chest pain. Upon assessment, pt AAOX1-2 and forgetful, unaware of why she is at the hospital. Daughter at the bedside reports patient becomes anxious at times with dementia. Patient does appear
anxious and when asked about chest pain reports having sharp pain to the left side of chest at all times. EKG - no changes. STAT troponin down from previous (1.6>>1.08). Rx 0.5mg PO Ativan. Patient now sleeping comfortably.
[2023-11-14] MEDS: TYLENOL PO (03:47)
[2023-11-14 04:13] LABS: APTT 91.5 Sec (23.4-35.0)
--- NOTE | 2023-11-14 04:41 | PTCARENOTE ---
Patient c/o pain, agitated, pulling off leads, gown, climbing out of bed. ROBBIN Gutierrez ordered PO medications; However, patient is refusing to take PO medications. ROBBIN Gutierrez aware.
--- NOTE | 2023-11-14 05:13 | PTCARENOTE ---
Restraints were ordered, but patient seems a little calmer as the sun comes up. Will hold off on restraints. ROBBIN Gutierrez aware.
[2023-11-14 07:37] LABS: Glucose - Point of Care 115 mg/dl (70-99)
[2023-11-14] MEDS: NOVOLOG FLEXPEN-LOW RESISTANCE SC ×2 (07:47→17:31)
[2023-11-14] MEDS: JARDIANCE 10 MG PO (08:57)
[2023-11-14] MEDS: ASPIR LOW (ENTERIC COATED) 81 MG PO (08:57)
[2023-11-14] MEDS: OSCAL 500 + D 500 MG PO ×2 (08:57→21:11)
[2023-11-14] MEDS: B COMPLEX w/VITAMIN C 1 CAPLET PO (08:58)
[2023-11-14] MEDS: TOPROL XL 25 MG PO (08:58)
[2023-11-14] MEDS: VITAMIN C 500 MG PO (08:58)
[2023-11-14] MEDS: ARIMIDEX 1 MG PO (08:58)
[2023-11-14] MEDS: ARICEPT 10 MG PO (08:58)
--- NOTE | 2023-11-14 08:58 | W.PN.CD ---
Today's Communication / Plan
-
-Etiology of syncope unclear, but highly concerning for a cardiac event/dysrhythmia; differential diagnosis also includes seizure (Neurology consulted--no acute findings on head CT or MRI).
-The patient has had frequent PVCs on telemetry in addition to some nonconducted P waves (with pauses of approximately 2 seconds).
-EP Cardiology to evaluate patient after cardiac catheterization tomorrow (see below); patient may need a pacemaker (pauses) versus ICD (secondary prevention).
-Transthoracic echocardiogram yesterday revealed an LVEF of 40% with mid inferoseptal akinesis and moderate mid anteroseptal hypokinesis; patient denies any previous cardiac history.
-Patient complained of some chest pain yesterday; continue aspirin and heparin drip.
-The patient will undergo cardiac catheterization tomorrow; NPO after midnight.
-Moderate dementia with poor memory--daughter (Germaine) at bedside this a.m., other daughter (Vanessa) was at bedside yesterday.
Impression / Plan
-
83-year-old female with hypertension, hyperlipidemia, diabetes, previous right breast cancer, and moderate dementia presenting after syncopal episode after driving with her family for 4-1/2 hours from [place], [place]. After the car ride (she was riding
in the backseat), she got out of the car with the dog and her family heard a thud at the back of the car and found her on the ground. She had no prodromal symptoms and does not recall the event. There was tongue biting noted, causing concern for
possible seizure. The patient lives in [place], [place], and is here visiting for her granddaughter's baby shower tomorrow afternoon. The patient plans on returning back home tomorrow evening after the baby shower. The patient denies any chest pain,
shortness of breath, palpitations, lower extremity swelling, or previous syncopal events; she has no previous true cardiac history. The patient was found to have frequent PVCs on her EKG; Cardiology consulted. Patient's blood pressure on admission
was 201/116 mmHg.
Syncope/PVCs/abnormal telemetry:
-Etiology of syncope unclear, but highly concerning for a cardiac event/dysrhythmia; differential diagnosis also includes seizure (Neurology consulted--no acute findings on head CT or MRI).
-The patient has had frequent PVCs on telemetry in addition to some nonconducted P waves (with pauses of approximately 2 seconds).
-EP Cardiology to evaluate patient after cardiac catheterization tomorrow (see below); patient may need a pacemaker (pauses) versus ICD (secondary prevention).
-Continue current dose of Toprol-XL for now.
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
-Transthoracic echocardiogram yesterday revealed an LVEF of 40% with mid inferoseptal akinesis and moderate mid anteroseptal hypokinesis; patient denies any previous cardiac history.
-Patient complained of some chest pain yesterday; continue aspirin and heparin drip.
-The patient will undergo cardiac catheterization tomorrow; NPO after midnight.
-Continue lisinopril.
-Started on Jardiance yesterday.
Mild aortic stenosis:
-Can be monitored as outpatient.
Hypertension:
-Blood pressure is mildly elevated.
-Will start Imdur 30 mg daily.
Hyperlipidemia:
-Continue current dose of atorvastatin.
Diabetes:
-On metformin; management as per primary team.
Moderate dementia with poor memory--daughter (Germaine) at bedside this a.m., other daughter (Vanessa) was at bedside yesterday.
Physical Exam
Vital Signs/Labs
Vital Signs
Temp Pulse Resp BP Pulse Ox
98.1 F 70 16 159/91 98
11/14/23 07:59 11/14/23 07:59 11/14/23 07:59 11/14/23 07:59 11/14/23 07:59
11/13/23 11/14/23 11/15/23
06:59 06:59 06:59
Actual Weight 60.781 kg
06/08/24 12:02
11/14/23 00:45
APTT 91.5 Sec (23.4-35.0) H 11/14/23 03:44
Magnesium 1.6 mg/dl (1.6-2.3) 11/14/23 00:45
Magnesium Cancelled 11/14/23 00:45
Triglycerides 99 mg/dl (10-149) 11/13/23 06:18
LDL Cholesterol, Calc 61 mg/dl 11/13/23 06:18
VLDL Cholesterol, Calc 19 mg/dl (0-30) 11/13/23 06:18
HDL Cholesterol 47 mg/dl 11/13/23 06:18
LAB Results
11/12/23 11/13/23 11/13/23
23:00 06:18 11:04
Troponin I 0.293 H* 0.253 H* 0.348 H* D
11/13/23 11/14/23
17:07 00:45
Troponin I 1.600 H* D 1.080 H* D
Physical Exam
Constitutional: No acute distress and Other (Sleeping)
Cardiovascular: Rhythm & rate is regular (Ectopy present), Pedal edema is absent, Systolic murmur present (2/6) and S1S2 is normal
Respiratory: Respiratory effort normal and Lungs clear to auscul.
GI: Soft
Neuro/Psych: Other (Sleeping)
Other: Skin (Warm, dry, intact)
Data Reviewed
-
Date of Service: November 14, 2023
EKG: Tracing Personally Visualized and interpreted (Telemetry: Sinus rhythm with transient frequent PVCs in a pattern of bigeminy, occasional nonconducted P waves)
Echo: Tracing Personally Visualized and interpreted (LVEF 40% with mid inferoseptal akinesis and mid moderate anteroseptal hypokinesis; mild .)
X-Ray/CT/US/MRI/NUC/PET: Report Reviewed by me (MRI brain--no acute finding.)
Medical Tests (PFT, Pathology etc): Discussed with Family (Daughter (Germaine) at bedside)
Labs: Labs Reviewed by me
--- NOTE | 2023-11-14 09:01 | W.PN.NEURO.1 ---
Today's Communication / Plan
-
.
Neuro Assessment/Plan
Assessment
IMPRESSIONS/RECOMMENDATIONS:
Abrupt onset fall with suggested seizure-like activity and mild pupillary asymmetry with greater pupillary size on the left than on the right by 1 mm
Differential diagnosis would include convulsive syncope
MRI of brain failed to demonstrate structural abnormalities producing symptomatology
Plan
Follow orthostatic blood pressures
Not clear at this time patient would benefit from EEG based on new discovery of myocardial infarction which may have produced convulsive syncope
Would not at this time initiate antiseizure medication
Based on discovery of possible myocardial infarction, okay from neurology standpoint to initiate heparin without bolus
May continue donepezil at this time although reconsideration of this medication based on the patient's possible seizure may be given
Will continue to follow pending results.
Subjective/Objective
Subjective Data
Date of Service: November 14, 2023
Objective Data
Vital Signs
Temp Pulse Resp BP Pulse Ox
36.7 C 70 16 159/91 98
11/14/23 07:59 11/14/23 07:59 11/14/23 07:59 11/14/23 07:59 11/14/23 07:59
Lab Results
11/13/23 12:02
11/14/23 00:45
APTT 91.5 Sec (23.4-35.0) H 11/14/23 03:44
Sodium 137 mmol/L (135-145) 11/14/23 00:45
Potassium 3.9 mmol/L (3.5-5.1) 11/14/23 00:45
BUN 15 mg/dl (7-17) 11/14/23 00:45
Glucose 105 mg/dl (70-99) H 11/14/23 00:45
Calcium 10.1 mg/dl (8.4-10.2) 11/14/23 00:45
LDL Cholesterol, Calc 61 mg/dl 11/13/23 06:18
Vitamin B12 667 pg/ml (850-339) 11/13/23 06:18
Patient Allergies
No Known Allergies Allergy (Verified 11/12/23 16:00)
Data Reviewed
-
MRI Head: Report Reviewed
Orthostatic Testing: Report Reviewed
Labs: Report Reviewed
Old Records: Summarized
Past History
Past History
ED Past Medical History: Cancer (Breast), HTN, Hypercholesterolemia, ID and Other (Syncope November 2023, dementia)
ED Past Surgical History: Orthopedic (Rotator cuff repair, knee surgery)
Social History
Tobacco: Former smoker
Personal: Single
Employment: Retired
Family History
Family History: Other (Reviewed and noncontributory)
Medications
-
Medications:
Generic Name Dose Route Start Last Admin
Trade Name Freq PRN Reason Stop Dose Admin
Acetaminophen 650 mg 11/12/23 23:18 11/13/23 10:15
Acetaminophen 325 Mg Tablet PO 12/10/23 23:17 650 mg
Q4HPRN PRN Administration
mild pain/MOONEY/temp> 100.4F
Anastrozole 1 mg 11/13/23 08:00 11/13/23 10:12
Anastrozole 1 Mg Tablet PO 12/11/23 07:59 1 mg
DAILY KAMRON Administration
Ascorbic Acid 500 mg 11/13/23 08:00 11/13/23 10:12
Ascorbic Acid 500 Mg Tablet PO 12/11/23 07:59 500 mg
DAILY KAMRON Administration
Aspirin 81 mg 11/14/23 08:00
Aspirin 81 Mg (Enteric Coated) Tablet PO 12/12/23 07:59
DAILY KAMRON
Atorvastatin Calcium 40 mg 11/13/23 22:00 11/13/23 22:49
Atorvastatin (Lipitor) 40 Mg Tablet PO 12/11/23 21:59 40 mg
HS KAMRON Administration
Calcium/Vitamin D 500 mg 11/13/23 08:00 11/13/23 20:35
Calcium Carbonate 500 Mg/Vitamin D 5 Mcg (200 Units) Tablet PO 12/11/23 07:59 500 mg
BID KAMRON Administration
Cholecalciferol 25 mcg 11/13/23 18:00 11/13/23 17:41
Cholecalciferol (Vitamin D3) 25 Mcg Tablet (1,000 Units) PO 12/11/23 17:59 25 mcg
QPM KAMRON Administration
Dextrose 12.5 grams 11/12/23 23:18
Dextrose 50% (0.5 Grams/Ml) 50 Ml Syringe IV 12/10/23 23:17
[id number] PRN
hypoglycemia
Protocol
Donepezil HCl 10 mg 11/13/23 08:00 11/13/23 10:12
Donepezil Hcl 10 Mg Tablet PO 12/11/23 07:59 10 mg
DAILY KAMRON Administration
Empagliflozin 10 mg 11/13/23 11:15 11/13/23 12:05
Empagliflozin (Jardiance) 10 Mg Tablet PO 12/11/23 11:14 10 mg
DAILY KAMRON Administration
Glucagon 1 mg 11/12/23 23:18
Glucagon 1 Mg Vial IM 12/10/23 23:17
PRN PRN
hypoglycemia
Protocol
Heparin Sodium 25,000 units in 250 mls @ 0 mls/hr 11/13/23 11:45 11/13/23 15:06
Heparin 54574 Units/250 Ml IV 250 mls
PER PROTOCOL KAMRON Administration
Protocol
Per Protocol
Insulin Aspart 0 units 11/13/23 07:30 11/14/23 07:47
Insulin Aspart Low Resistance 300 Units/3 Ml Pen.Injctr SC 12/11/23 07:29 Not Given
AC KAMRON
Protocol
Isosorbide Mononitrate 30 mg 11/14/23 08:00
Isosorbide Mononitrate 30 Mg Extended Release Tablet PO 12/12/23 07:59
DAILY KAMRON
Lisinopril 10 mg 11/13/23 22:00 11/13/23 22:49
Lisinopril 10 Mg Tablet PO 12/11/23 21:59 10 mg
HS KAMRON Administration
Metoprolol Succinate 25 mg 11/13/23 12:00 11/13/23 11:52
Metoprolol 25 Mg Extended Release Tablet PO 12/11/23 11:59 25 mg
DAILY KAMRON Administration
Sodium Chloride 0 flush 11/12/23 23:00 11/13/23 11:55
Sodium Chloride 0.9% (Flush) Syringe IV 12/10/23 22:59 2 flush
PER PROTOCOL KAMRON Administration
Sodium Chloride 0.25 ml 11/12/23 23:23
Nss (Pf) 10 Ml Vial For Ativan 0.5 Mg Dose IV
ONCE PRN
FOR MRI
Vitamin B Complex/Vitamin C 1 caplet 11/13/23 08:00 11/13/23 10:11
Vitamin B Complex With Vitamin C Caplet PO 12/11/23 07:59 1 caplet
DAILY KAMRON Administration
[2023-11-14] MEDS: IMDUR (EXTENDED RELEASE) 30 MG PO (09:02)
--- NOTE | 2023-11-14 10:54 | W.PN.ENT ---
Today's Communication
-
seen at bedside
Impression / Plan
-
MRI scan head shows radiologic mastoiditis
patient does not has clinical mastoiditis or ear infection/fluid
Requires no treatment or follow up
Subjective Data
-
asked to see patient because MRI scan read as showing mastoiditis
patient has no ear pain or change in hearing
no history of ear infections or allergies
Objective Data
-
Vital Signs
Temp Pulse Resp BP Pulse Ox
98.1 F 70 16 159/91 98
11/14/23 07:59 11/14/23 07:59 11/14/23 07:59 11/14/23 07:59 11/14/23 07:59
Intake & Output
11/13/23 11/14/23 11/15/23
06:59 06:59 06:59
Intake:
Oral fluids 720 / 720
Output:
Urine, Voided 675 / 675
Other:
How many times incontinent 1
SATURATED amount urine
Lab Results
11/13/23 12:02
11/14/23 00:45
APTT 91.5 Sec (23.4-35.0) H 11/14/23 03:44
Calcium 10.1 mg/dl (8.4-10.2) 11/14/23 00:45
Magnesium 1.6 mg/dl (1.6-2.3) 11/14/23 00:45
Magnesium Cancelled 11/14/23 00:45
Total Bilirubin 1.4 mg/dl (0.2-1.3) H 11/14/23 00:45
AST 41 U/L (14-36) H 11/14/23 00:45
ALT 23 U/L (0-35) 11/14/23 00:45
Alkaline Phosphatase 64 U/L (38-126) 11/14/23 00:45
Triglycerides 99 mg/dl (10-149) 11/13/23 06:18
LDL Cholesterol, Calc 61 mg/dl 11/13/23 06:18
VLDL Cholesterol, Calc 19 mg/dl (0-30) 11/13/23 06:18
HDL Cholesterol 47 mg/dl 11/13/23 06:18
Urine Color Yellow 11/12/23 19:29
Urine Clarity Clear (Clear) 11/12/23 19:29
Urine pH 6.0 (5.0-9.0) 11/12/23 19:29
Ur Specific [place] 1.015 (<1.030) 11/12/23 19:29
Urine Ketones 1+ (Negative) A 11/12/23 19:29
Physical Exam
-
ears clear without infection or fluid
no drainage
Chest: Clear
Respiratory: Clear
Data Reviewed
-
Radiology Results: Report Reviewed
[2023-11-14 11:16] LABS: APTT 114.6 Sec (23.4-35.0)
[2023-11-14 12:14] LABS: Glucose - Point of Care 179 mg/dl (70-99)
--- NOTE | 2023-11-14 12:18 | CON.MD ---
Consultation - Medical
-
chief complaint: right mastoiditis on MRI scanHistory of present illness: This patient is an 83-year-old woman from [place] who rode in the back of a car for 4-1/2 hours to come to her granddaughters baby shower. As she got out of the car she
passed out and was admitted to [facility] for workup. MRI scan showed evidence of right mastoiditis according to the reading. The patient denies ear pain or drainage. She has not noted a significant change in her hearing. She has no
history of ear infections or fluid in the ears. She has not had vertigo. She is feeling good otherwise. I was asked to see the patient regarding the mastoiditis seen on the MRI scan.
Past medical history:
Allergies: No known drug allergies
Home medications:
Acetaminophen 650 mg p.o. every 12 hours as needed
Anastrozole 1 mg p.o. daily
As sorbic acid 500 mg p.o. daily
Atorvastatin 40 mg p.o. daily
Calcium citrate D3 950/250 mg 1 tablet p.o. twice daily
Cholecalciferol vitamin D3 25 mcg p.o. daily
Donepezil 10 mg p.o. daily
Lisinopril 10 mg p.o. nightly
Metformin 1000 mg p.o. twice daily
Vitamin B complex 1 cap p.o. daily
Vitamin EE 268 mg p.o. every afternoon
Medical problems:
Closed head injury, unwitnessed fall, ambulatory dysfunction, hypertension, hypercholesterolemia, [id number] diabetes mellitus,
Hospitalizations: The patient is currently hospitalized for an unwitnessed loss of consciousness
Family history: Asked and is noncontributory for this problem
Review of systems: Negative for ear pain or drainage, negative for change in hearing, negative for vertigo, negative for history of ear infections or fluid in the ears, negative for significant history of allergies
Physical examination:
Head atraumatic and normocephalic
Eyes extraocular movements are intact, pupils are equal and reactive to light and accommodation
Nose: Clear without infection
Ears show clear eardrums and ear canals. She has a small amount of wax which is not obstructive. There is no infection. No drainage is noted. There is no evidence of fluid in the ears.
Mouth: Clear mucosa without evidence of bruxism and tongue thrust
Cranial nerves II through XII intact
Thyroid gland: Normal to palpation
Salivary glands: Normal to palpation without evidence of swelling or infection
Skin: Normal tone and color
Voice good volume and tone
Neck: Supple without adenopathy or masses
MRI scan: The MRI scan showed a small amount of signal intensity within the mastoid cavity consistent with possible mucosal swelling versus fluid. This resulted in only partial opacification of the mastoid.
Impression: This patient was found to have mastoiditis on MRI scan. The patient does not show evidence of ear infection or fluid. There is no evidence of clinical mastoiditis. This is radiologic mastoiditis which is different and requires no
treatment without clinical signs or symptoms.
Plan: Observe the patient. No need for treatment for the radiologic diagnosis of mastoiditis on the right side an MRI scan. No further follow-up is required.
--- NOTE | 2023-11-14 13:14 | W.PN.HOSP.TC ---
Today's Communication/Plan
-
Continue Heparin Drip
Cardiac Cath tomorrow
NPO after midnight
Assessment / Plan
Assessment / Plan
Physical Exam
General: Not in acute distress
HEENT: Normocephalic
Respiratory: Clear to Auscultation Bilaterally
Cardiac: S1/S2 and Regular Rhythm
GI: Soft, Non Tender, Non Distended, Normal Bowel Sounds
Musculoskeletal: No Cyanosis and No Edema
Skin: Warm and Dry
Neuro: Awake, Alert, Reduced memory, PERRL. Cranial Nerves 2 through 12 grossly intact. Strength and sensation grossly intact bilaterally. Heel to dee intact bilaterally.
Psych: Calm
Assessment/Plan
#Unwitnessed fall with scalp hematoma syncope/versus seizure versus cardiac arrhythmia given multiple PVCs
#Inferoseptal Akinesis on Echocardiogram
#Frequent Premature Ventricular Contractions and Pauses on Tele
-Possibly myocardial infarction resulting syncope
-Heparin Drip (without initial bolus) started after discussion with cardiology and neurology
-Continue Aspirin
-Prior to arrival was reported to have anisocoria and tongue biting and SBP 200 mmHg
-Follow orthostatic vitals signs
-EEG of unclear benefit as per neuro given the fact that patient is suspected to have had myocardial infarction which may have produced convulsive syncope
-2D echo results are noted
-MRI brain without any structural causes that would produce patient's presenting symptoms
-Consulted neurology, recommendations appreciated
-Consulted cardiology, recommendations appreciated
-PT/OT/case send consult
-Cardiac cath tomorrow
-NPO after midnight
#Mild mitral stenosis on echocardiogram
#Hypertension
-BP was 201/116 initially
-Continue Lisinopril 10 mg daily
#DM 2
-Accu-Cheks SSI, check HgbA1c
-Hold metformin
#Acute thrombocytopenia unclear
-Platelets 117-->111-->122
-Monitor CBC
#Dementia Hx-moderate Dx October 2022
-Continue Aricept/Donepezil 10 mg daily
#Hyperlipidemia
-Continue Lipitor 40 mg at bedtime
#Breast Cancer
-Patient on current tamoxifen
DVT prophylaxis
SCDs
DNR
Spoke to patient's daughter today inside patient's room.
Anticipated Discharge: > 48 hours
Subjective/Interval History
-
Date of Service: November 14, 2023
Patient was seen and examined. She was reported to have been agitated and confused overnight.
Objective Data
-
Labs:
Laboratory Results
11/14/23 11/14/23 11/14/23
00:45 03:44 10:17
APTT 91.5 H 114.6 H
Sodium 137
Potassium 3.9
Chloride 103
Carbon Dioxide 25
BUN 15
Creatinine 0.7
Glucose 105 H
Calcium 10.1
Total Bilirubin 1.4 H
AST 41 H
ALT 23
Alkaline Phosphatase 64
11/14/23
17:30
APTT Pending
Sodium
Potassium
Chloride
Carbon Dioxide
BUN
Creatinine
Glucose
Calcium
Total Bilirubin
AST
ALT
Alkaline Phosphatase
Vital Signs:
Vital Signs
Temp Pulse Resp BP Pulse Ox
97.7 F 76 16 98/60 96
11/14/23 11:59 11/14/23 11:59 11/14/23 11:59 11/14/23 11:59 11/14/23 11:59
I&O
11/13/23 11/14/23 11/15/23
06:59 06:59 06:59
Intake Total 720 / 720
Output Total 675 / 675
Balance 45 / 45
[2023-11-14] MEDS: NOVOLOG FLEXPEN-LOW RESISTANCE 1 UNITS SC (14:34)
[2023-11-14] MEDS: TYLENOL 650 MG PO (17:13)
[2023-11-14] MEDS: VITAMIN D3 (cholecalciferol) 25 MCG PO (17:13)
[2023-11-14 17:28] LABS: Glucose - Point of Care 128 mg/dl (70-99)
[2023-11-14 18:21] LABS: APTT 90.9 Sec (23.4-35.0)
[2023-11-14] MEDS: ZESTRIL PO (21:11)
[2023-11-14] MEDS: LIPITOR 40 MG PO (21:11)
[2023-11-14 22:11] LABS: Glucose - Point of Care 184 mg/dl (70-99)
[2023-11-14] MEDS: NSS 1000 IV (22:20)
[2023-11-15] VITALS (16 sets, daily range): BP systolic 88–160; BP diastolic 47–83; PULSE 68–75; O2SAT 94
[2023-11-15 00:04] LABS: APTT 114.8 Sec (23.4-35.0)
[2023-11-15] MEDS: HEPARIN 25000 UNITS/250 ML IV (00:16)
[2023-11-15 06:41] LABS: Hematocrit 31.8 % (37.0-47.0); Hemoglobin 10.9 g/dL (12.0-16.0); Mean Corp Hgb Conc. 34.3 g/dL (33.0-37.0); Mean Corpuscular Hgb 31.1 pg (27.0-31.0); Mean Corpuscular Volume 90.9 fL (81.0-99.0); Mean Platelet Volume 11.8 fL (7.4-10.4); Platelet Count 103 10^3/uL (130-400); Red Cell Dist. Width 13.8 % (11.5-14.5)
[2023-11-15 06:52] LABS: APTT 103.6 Sec (23.4-35.0)
[2023-11-15 07:33] LABS: ALT (SGPT) 19 U/L (0-35); AST (SGOT) 30 U/L (14-36); Albumin 3.5 g/dl (3.5-5.0); Alkaline Phosphatase 54 U/L (38-126); Blood Urea Nitrogen 21 mg/dl (7-17); Calcium 9.6 mg/dl (8.4-10.2); Carbon Dioxide 23 mmol/L (22-30); Chloride 105 mmol/L (98-107); Estimated Creatinine Clearance 44 ml/min; Glucose 98 mg/dl (70-99); Magnesium 1.8 mg/dl (1.6-2.3); Potassium 3.6 mmol/L (3.5-5.1); Sodium 136 mmol/L (135-145); Total Bilirubin 1.2 mg/dl (0.2-1.3); Total Protein 5.7 g/dl (6.3-8.2); eGFR > 60.00
[2023-11-15 07:51] LABS: Glucose - Point of Care 109 mg/dl (70-99)
[2023-11-15] MEDS: NOVOLOG FLEXPEN-LOW RESISTANCE SC (08:00)
--- NOTE | 2023-11-15 08:21 | W.PN.HOSP.TC ---
Today's Communication/Plan
-
NPO for cardiac cath
Assessment / Plan
Assessment / Plan
Physical Exam
General: Not in acute distress
HEENT: Normocephalic
Respiratory: Clear to Auscultation Bilaterally
Cardiac: S1/S2 and Regular Rhythm
GI: Soft, Non Tender, Non Distended, Normal Bowel Sounds
Musculoskeletal: No Cyanosis and No Edema
Skin: Warm and Dry
Neuro: Awake, Alert, Reduced memory, PERRL. Cranial Nerves 2 through 12 grossly intact. Strength and sensation grossly intact bilaterally. Heel to dee intact bilaterally.
Psych: Calm
Assessment/Plan
#Unwitnessed fall with scalp hematoma syncope/versus seizure versus cardiac arrhythmia given multiple PVCs
#Inferoseptal Akinesis on Echocardiogram
#Frequent Premature Ventricular Contractions and Pauses on Tele
-Possibly myocardial infarction resulting syncope; patient fell backward and bit tongue on way down per daughter
-Heparin Drip (without initial bolus) started after discussion with cardiology and neurology
-Continue Aspirin
-Follow orthostatic vitals signs
-EEG of unclear benefit as per neuro given the fact that patient is suspected to have had myocardial infarction which may have produced convulsive syncope
-2D echo results are noted
-MRI brain without any structural causes that would produce patient's presenting symptoms
-Consulted neurology, recommendations appreciated
-Consulted cardiology, recommendations appreciated
-Cardiac cath today
-NPO after midnight
#Mild mitral stenosis on echocardiogram
#Hypertension
-BP was 201/116 initially
-Continue Lisinopril 10 mg daily
#DM 2
-Accu-Cheks SSI, check HgbA1c
-Hold metformin
#Acute thrombocytopenia unclear
-Platelets 117-->111-->122
-Monitor CBC
#Dementia Hx-moderate Dx October 2022
-Continue Aricept/Donepezil 10 mg daily
#Hyperlipidemia
-Continue Lipitor 40 mg at bedtime
#Breast Cancer
-Patient on current tamoxifen
DVT prophylaxis
SCDs
DNR
Spoke to patient's daughter today inside patient's room.
Anticipated Discharge: 24 - 48 hours
Subjective/Interval History
-
Date of Service: November 15, 2023
feeling anxious about being here
no chest pain
Objective Data
-
Labs:
Laboratory Results
11/14/23 11/15/23
23:23 06:23
WBC 6.0
Hgb 10.9 L
Hct 31.8 L
Plt Count 103 L
APTT 114.8 H 103.6 H
Sodium 136
Potassium 3.6
Chloride 105
Carbon Dioxide 23
BUN 21 H
Creatinine 0.9
Glucose 98
Calcium 9.6
Total Bilirubin 1.2
AST 30
ALT 19
Alkaline Phosphatase 54
Vital Signs:
Vital Signs
Temp Pulse Resp BP Pulse Ox
97.8 F 66 16 160/83 95
11/15/23 07:43 11/15/23 07:43 11/15/23 07:43 11/15/23 07:43 11/15/23 07:43
I&O
11/14/23 11/15/23 11/16/23
06:59 06:59 06:59
Intake Total 720 / 720 1740 / 1740
Output Total 675 / 675 1205 / 1205
Balance 45 / 45 535 / 535
Review of Systems
-
History Source: Patient
All other systems: Reviewed and negative
Physical Exam
-
General: No Apparent Distress and Other (emotional)
HEENT: PERRLA
Respiratory: Clear to Auscultation; Negative Wheezes
Cardiac: Regular Rhythm and S1/S2
GI: Soft and Nontender
Musculoskeletal: No Edema
Skin: Warm and Dry; Negative Rash
Neuro: AO x 3
Psych: Anxious
Data Reviewed
-
Diagnostic Radiology: Report Reviewed by me
Labs: Labs Reviewed by me
[2023-11-15] MEDS: JARDIANCE 10 MG PO (09:38)
[2023-11-15] MEDS: ASPIR LOW (ENTERIC COATED) 81 MG PO (09:38)
[2023-11-15] MEDS: B COMPLEX w/VITAMIN C 1 CAPLET PO (09:38)
[2023-11-15] MEDS: VITAMIN C 500 MG PO (09:38)
[2023-11-15] MEDS: IMDUR (EXTENDED RELEASE) 30 MG PO (09:38)
[2023-11-15] MEDS: ARICEPT 10 MG PO (09:38)
[2023-11-15] MEDS: TOPROL XL 25 MG PO (09:40)
[2023-11-15] MEDS: OSCAL 500 + D 500 MG PO ×2 (09:40→20:56)
[2023-11-15] MEDS: ARIMIDEX 1 MG PO (09:40)
--- NOTE | 2023-11-15 11:20 | W.PN.CD ---
Today's Communication / Plan
-
Cardiac catheterization to clarify coronary anatomy.
EP to see post cath (PPM vs. ICD?).
Impression / Plan
-
Impression/Plan: 83-year-old female with hypertension, hyperlipidemia, diabetes, previous right breast cancer, and moderate dementia presenting after syncopal episode after driving with her family for 4-1/2 hours from [place], [place], found have
hypertensive urgency (SBP > 200 mmHg), elevated troponin and new cardiomyopathy.
#Syncope/PVCs/abnormal telemetry:
-Acute.
-Etiology of syncope unclear, but highly concerning for a cardiac event/dysrhythmia; differential diagnosis also includes seizure (Neurology consulted--no acute findings on head CT or MRI).
-The patient has had frequent PVCs on telemetry in addition to some nonconducted P waves (with pauses of approximately 2 seconds).
-Continue current dose of Toprol-XL for now.
-EP Cardiology to evaluate patient after cardiac catheterization; patient may need a pacemaker (pauses) versus ICD (secondary prevention).
#NSTEMI
-Acute.
-Troponin peaked at 1.600.
-TTE shows regional wall motion abnormalities.
-Patient had chest pain overnight per notes, does not recall on interview.
-Continue metoprolol, isosorbide mononitrate, aspirin, atorvastatin.
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
-New diagnosis.
-Transthoracic echocardiogram yesterday revealed an LVEF of 40% with mid inferoseptal akinesis and moderate mid anteroseptal hypokinesis; patient denies any previous cardiac history.
-Patient complained of some chest pain yesterday; continue aspirin and heparin drip.
-Continue lisinopril, metoprolol and empagliflozin.
-Catheterization to clarify coronary anatomy.
#Mild aortic stenosis:
-New diagnosis.
-Can be monitored as outpatient.
#Hypertension:
-Chronic, stable.
-Isosorbide mononitrate added yesterday.
-Hypotensive last night.
-Lisinopril held this morning.
#Hyperlipidemia
-Chronic, stable.
-Continue current dose of atorvastatin.
#Diabetes
-Chronic, stable.
-On metformin; management as per primary team.
#Moderate dementia with poor memory
-Chronic, stable.
-Daughters typically present, provide consent and background information.
-Continue donepezil.
Subjective/Interval History:
Nursing documents chest pain overnight.
Patient was highly anxious and appears to .
Hypotensive to 82/50 on 11/14/2023 @ 21:11.
Started on isosorbide mononitrate yesterday.
DATA:
CT Chest, 11/12/2023:
IMPRESSION:
There are no acute intracranial abnormalities.
There is moderate diffuse cortical atrophy with moderate nonspecific white matter changes as described above.
There is small midline posterior parietal scalp hematoma.
MRI Brain, 11/13/2023:
IMPRESSION:
There are no focal or acute intracranial abnormalities.
There is moderate cortical and cerebellar atrophy with extensive nonspecific white matter changes as described above.
Right mastoiditis.
TTE, 11/13/2023:
CONCLUSIONS
Left ventricular ejection fraction is approximately 50%. Inferoseptal akinesis.
Moderate mid anteroseptal hypokinesis.
Normal right ventricular size and function.
Mild aortic stenosis; peak/mean gradients 9/5 mmHg, calculated GIRISH 1.9 cm2.
Mild tricuspid regurgitation. Estimated pulmonary artery pressure of 35-40
mmHg.
No prior study available for comparison.
Physical Exam
Vital Signs/Labs
Vital Signs
Temp Pulse Resp BP Pulse Ox
36.6 C 66 16 160/83 95
11/15/23 07:43 11/15/23 07:43 11/15/23 07:43 11/15/23 09:40 11/15/23 07:43
11/13/23 11/14/23 11/15/23
11:59 11:59 11:59
Actual Weight 60.781 kg
11/15/23 06:23
11/15/23 06:23
APTT 103.6 Sec (23.4-35.0) H 11/15/23 06:23
Magnesium 1.8 mg/dl (1.6-2.3) 11/15/23 06:23
Triglycerides 99 mg/dl (10-149) 11/13/23 06:18
LDL Cholesterol, Calc 61 mg/dl 11/13/23 06:18
VLDL Cholesterol, Calc 19 mg/dl (0-30) 11/13/23 06:18
HDL Cholesterol 47 mg/dl 11/13/23 06:18
LAB Results
11/12/23 11/13/23 11/13/23
23:00 06:18 11:04
Troponin I 0.293 H* 0.253 H* 0.348 H* D
11/13/23 11/14/23
17:07 00:45
Troponin I 1.600 H* D 1.080 H* D
Physical Exam
Constitutional: No acute distress and Comfortable
EENT: Anicteric and Moist mucous membranes
Cardiovascular: Rhythm & rate is regular, Pedal edema is absent, JVD pressure is normal, Systolic murmur present and S1S2 is normal
Respiratory: Respiratory effort normal, Lungs clear to auscul., Wheeze Absent, Crackles Absent and Rhonchi Absent
GI: Soft, Distention absent, Flat, Non tender and Normal bowel sounds
Neuro/Psych: Alert and Oriented (to self.)
Data Reviewed
-
Date of Service: November 15, 2023
Medical Decision Making: Reviewed Test Results, Test Interpretation and Review of Case with other Provider
EKG: Tracing Personally Visualized and interpreted and Report Reviewed by me
Echo: Report Reviewed by me
X-Ray/CT/US/MRI/NUC/PET: Image Personally Visualized and interpreted and Report Reviewed by me
Labs: Labs Reviewed by me
--- NOTE | 2023-11-15 11:41 | PTCARENOTE ---
pt sent down for cardiac cath this afternoon. sent with chart and SCDS. heparin gtt and fluids taken down per team who came and got patient. pt daughter went down at bedside to sign consent for procedure. pt Q6 accuchecks due to being NPO for
procedure. pt took '6' pills at a time with 'room temp propell' at bedside. this is her morning routine and is cooperative if done this way. pt was aaox1 and thought it was winter, pleasant with this nurse.
--- NOTE | 2023-11-15 12:02 | ITS.CL.CATH ---
Cardiology Manager - Catheterization
Cardiac Catheterization
Procedure Report:
CARDIAC CATHETERIZATION REPORT
Date of Procedure: 11/15/2023
Referring: Wilfred Ramos M.D.
INDICATION: Troponin elevation, systolic cardiomyopathy, concern for non-ST elevation myocardial infarction in the context of syncope.
PROCEDURE:
1. Left heart catheterization
2. Coronary angiography.
ACCESS:
6 Khmer right radial artery.
CATHETERS:
1. 5 Khmer JR4.
2. 5 Khmer JL 3.5.
HEMODYNAMIC DATA
Weight (kg): 60.8
AO (s/d/x, mmHg): 121/64/82
LV (s/x mmHg): 136/9
LEFT VENTRICULOGRAPHY: Not performed.
CORONARY ANGIOGRAPHY
Dominance: Right.
Left Main: Normal size, bifurcating vessel. There is no coronary artery disease.
LAD: Normal size vessel giving rise to 1 significant diagonal. There are minor luminal irregularities in the proximal vessel.
Ramus: Congenitally absent.
Circumflex: Large size, nondominant vessel giving rise to 1 large marginal which subsequently divides into several daughter branches. There is no coronary artery disease.
RCA: Normal size, dominant vessel. There is no coronary artery disease.
INTERVENTION(S)
None.
Closure Device: Vascular band.
Radiation (mGy): 153.73
DAP (cm2.Gy): 14.4641
Fluoroscopy time (minutes): 2.1
Sedation time (minutes): 26
CONCLUSIONS
1. Right dominant circulation with mild luminal irregularities in the proximal LAD but no obstructive coronary artery disease.
2. Normal filling pressures (LVEDP = 9 mmHg at 60.8 kg).
3. No obvious coronary/ischemic cause for syncope.
RECOMMENDATIONS:
1. Expectant management after cardiac catheterization via right radial approach.
2. Limited weight bearing on the right wrist for one week.
3. Consultation with electrophysiology regarding need for permanent pacemaker versus ICD versus EP study.
Copy to: Wilfred Ramos M.D.
Russ Zaidi DO, FACC, FACP
--- NOTE | 2023-11-15 12:46 | PTCARENOTE ---
Addendum entered by Jodi Coe RN 11/15/23 14:37:
R band removed per protocol as well as desired goal of air. 2x2 and tegaderm applied to site.
Original Note:
pt with R band on RUE. drawing air to begin at 1300. pt has sling intact to keep arm still and daughter remains at bedside. post cath assessment added to worklist.
[2023-11-15 12:54] LABS: Glucose - Point of Care 124 mg/dl (70-99)
[2023-11-15] MEDS: MAGNESIUM SULFATE 100 IV (15:10)
[2023-11-15] MEDS: KCL 40 MEQ PO (15:10)
[2023-11-15] MEDS: NSS 500 IV (16:45)
--- NOTE | 2023-11-15 16:47 | PTCARENOTE ---
pt with BP of 88/50. made aware. NSS bolus ordered. this nurse administered through L forearm IV site. pt back in bed after being in the chair and working with PT/OT this afternoon.
[2023-11-15 17:15] LABS: Glucose - Point of Care 164 mg/dl (70-99)
[2023-11-15] MEDS: VITAMIN D3 (cholecalciferol) 25 MCG PO (17:15)
[2023-11-15] MEDS: NOVOLOG FLEXPEN-LOW RESISTANCE 1 UNITS SC (17:16)
[2023-11-15] MEDS: ZESTRIL 10 MG PO (20:56)
[2023-11-15] MEDS: LIPITOR 40 MG PO (20:57)
[2023-11-15 21:28] LABS: Glucose - Point of Care 118 mg/dl (70-99)
[2023-11-16] VITALS (17 sets, daily range): BP systolic 102–156; BP diastolic 60–94; BMI 21.2
[2023-11-16 06:37] LABS: Hematocrit 33.1 % (37.0-47.0); Hemoglobin 10.9 g/dL (12.0-16.0); Mean Corp Hgb Conc. 32.9 g/dL (33.0-37.0); Mean Platelet Volume 11.6 fL (7.4-10.4); Platelet Count 102 10^3/uL (130-400); Red Blood Cell Count 3.52 10^6/uL (4.20-5.40); Red Cell Dist. Width 13.7 % (11.5-14.5); White Blood Cell Count 5.9 10^3/uL (4.8-10.8)
[2023-11-16 06:54] LABS: ALT (SGPT) 22 U/L (0-35); AST (SGOT) 34 U/L (14-36); Albumin 3.4 g/dl (3.5-5.0); Alkaline Phosphatase 55 U/L (38-126); Blood Urea Nitrogen 20 mg/dl (7-17); Calcium 8.7 mg/dl (8.4-10.2); Carbon Dioxide 23 mmol/L (22-30); Chloride 108 mmol/L (98-107); Estimated Creatinine Clearance 57 ml/min; Glucose 94 mg/dl (70-99); Potassium 4.1 mmol/L (3.5-5.1); Sodium 138 mmol/L (135-145); Total Bilirubin 1.1 mg/dl (0.2-1.3); Total Protein 5.8 g/dl (6.3-8.2); eGFR > 60.00
[2023-11-16 06:55] LABS: Glucose - Point of Care 102 mg/dl (70-99)
[2023-11-16] MEDS: NOVOLOG FLEXPEN-LOW RESISTANCE SC ×3 (07:04→16:38)
[2023-11-16] MEDS: OSCAL 500 + D 500 MG PO ×2 (08:26→20:15)
[2023-11-16] MEDS: TOPROL XL 25 MG PO (08:26)
[2023-11-16] MEDS: VITAMIN C 500 MG PO (08:26)
[2023-11-16] MEDS: ARIMIDEX 1 MG PO (08:26)
[2023-11-16] MEDS: JARDIANCE 10 MG PO (08:27)
[2023-11-16] MEDS: B COMPLEX w/VITAMIN C 1 CAPLET PO (08:27)
[2023-11-16] MEDS: ARICEPT 10 MG PO (08:27)
[2023-11-16] MEDS: ASPIR LOW (ENTERIC COATED) 81 MG PO (08:27)
[2023-11-16] MEDS: IMDUR (EXTENDED RELEASE) 30 MG PO (08:28)
--- NOTE | 2023-11-16 08:43 | W.PN.HOSP.TC ---
Today's Communication/Plan
-
F/U EP recs
Assessment / Plan
Assessment / Plan
Physical Exam
General: Not in acute distress
HEENT: Normocephalic
Respiratory: Clear to Auscultation Bilaterally
Cardiac: S1/S2 and Regular Rhythm
GI: Soft, Non Tender, Non Distended, Normal Bowel Sounds
Musculoskeletal: No Cyanosis and No Edema
Skin: Warm and Dry
Neuro: Awake, Alert, Reduced memory, PERRL. Cranial Nerves 2 through 12 grossly intact. Strength and sensation grossly intact bilaterally. Heel to dee intact bilaterally.
Psych: Calm
Cardiac Cath 11/15/23
CONCLUSIONS
1. Right dominant circulation with mild luminal irregularities in the proximal LAD but no obstructive coronary artery disease.
2. Normal filling pressures (LVEDP = 9 mmHg at 60.8 kg).
3. No obvious coronary/ischemic cause for syncope.
RECOMMENDATIONS:
1. Expectant management after cardiac catheterization via right radial approach.
2. Limited weight bearing on the right wrist for one week.
3. Consultation with electrophysiology regarding need for permanent pacemaker versus ICD versus EP study.
TTE 11/13/23
CONCLUSIONS
Left ventricular ejection fraction is approximately 50%. Inferoseptal akinesis.
Moderate mid anteroseptal hypokinesis.
Normal right ventricular size and function.
Mild aortic stenosis; peak/mean gradients 9/5 mmHg, calculated GIRISH 1.9 cm2.
Mild tricuspid regurgitation. Estimated pulmonary artery pressure of 35-40
mmHg.
No prior study available for comparison.
BRAIN MRI 11/13/23
IMPRESSION:
There are no focal or acute intracranial abnormalities.
There is moderate cortical and cerebellar atrophy with extensive nonspecific white matter changes as described above.
Right mastoiditis
Assessment/Plan
#Unwitnessed fall concern for cardiac arrhythmia given multiple PVCs
#Inferoseptal Akinesis on Echocardiogram
#Frequent Premature Ventricular Contractions and Pauses on Tele
-s/p heparin gtt initiation (cleared by neurology) and cardiac cath on 11/14 without obstructive disease
-Continue Aspirin
-EEG of unclear benefit as per neuro given the fact that patient is suspected to have had myocardial infarction which may have produced convulsive syncope
-TTE results above
-MRI brain without any structural causes that would produce patient's presenting symptoms
-Consulted neurology, recommendations appreciated
-Consulted cardiology, recommendations appreciated
-EP consult today
#Chest discomfort this morning
-cardiac cath without obstructive disease
-trial of maalox
#Mild mitral stenosis on echocardiogram
#Hypertension
-BP was 201/116 initially
-Continue Lisinopril 10 mg daily
#DM 2
-Accu-Cheks SSI, check HgbA1c
-Hold metformin post cath
#Acute thrombocytopenia unclear
-Platelets 117-->111-->122
-Monitor CBC
#Dementia Hx-moderate Dx October 2022
-Continue Aricept/Donepezil 10 mg daily
#Hyperlipidemia
-Continue Lipitor 40 mg at bedtime
#Breast Cancer
-Patient on current tamoxifen
DVT prophylaxis
SCDs
DNR
Spoke to patient's daughter today inside patient's room.
51 minutes spent on patient evaluation, medical decision making and coordination of care
Anticipated Discharge: 24 - 48 hours
Subjective/Interval History
-
Date of Service: November 16, 2023
anxious being here
states had chest pain this morning that resolved after taking AM pills
Objective Data
-
Labs:
Laboratory Results
11/16/23
05:43
WBC 5.9
Hgb 10.9 L
Hct 33.1 L
Plt Count 102 L
Sodium 138
Potassium 4.1
Chloride 108 H
Carbon Dioxide 23
BUN 20 H
Creatinine 0.7
Glucose 94
Calcium 8.7
Total Bilirubin 1.1
AST 34
ALT 22
Alkaline Phosphatase 55
Vital Signs:
Vital Signs
Temp Pulse Resp BP Pulse Ox
98.0 F 74 18 154/94 97
11/16/23 08:29 11/16/23 08:29 11/16/23 08:29 11/16/23 08:29 11/16/23 08:29
I&O
11/15/23 11/16/23 11/17/23
06:59 06:59 06:59
Intake Total 1740 / 1740 2179.5 / 2179.5
Output Total 1205 / 1205
Balance 535 / 535 2179.5 / 2179.5
Review of Systems
-
History Source: Patient
All other systems: Reviewed and negative
Physical Exam
-
General: No Apparent Distress and Other (emotional)
HEENT: PERRLA
Respiratory: Clear to Auscultation; Negative Wheezes
Cardiac: Regular Rhythm and S1/S2
GI: Soft and Nontender
Musculoskeletal: No Edema
Skin: Warm and Dry; Negative Rash
Neuro: AO x 3
Psych: Anxious
Data Reviewed
-
Diagnostic Radiology: Report Reviewed by me
Labs: Labs Reviewed by me
[2023-11-16] MEDS: MAALOX 30 ML PO (08:54)
--- NOTE | 2023-11-16 09:38 | W.PN.CD ---
Today's Communication / Plan
-
- PPM today
Impression / Plan
-
Impression/Plan: 83-year-old female with hypertension, hyperlipidemia, diabetes, previous right breast cancer, and moderate dementia presenting after syncopal episode after driving with her family for 4-1/2 hours from [place], [place], found have
hypertensive urgency (SBP > 200 mmHg), elevated troponin and new cardiomyopathy.
#Syncope/PVCs/abnormal telemetry:
-Acute.
-Etiology of syncope unclear, but highly concerning for a cardiac event/dysrhythmia; differential diagnosis also includes seizure (Neurology consulted--no acute findings on head CT or MRI).
-High degree AV block noted on cath table with hx of syncope. The conduction disease is concerning.
-NSVT noted. discussed with patient and the son (phone) and daughter at bed side, ICD may not be needed as NSVT may be due to her bradycardia and manifestation of conduction disease.
-Continue current dose of Toprol-XL for now.
-EP Cardiology to evaluate patient after cardiac catheterization; patient may need a pacemaker (pauses) versus ICD (secondary prevention).
#Troponin leak
-Non-NM troponin leak .
-Troponin peaked at 1.600.
-TTE shows regional wall motion abnormalities but cath showed no CAD
- [facility] - 11/15/23- Right dominant circulation with mild luminal irregularities in the proximal LAD but no obstructive coronary artery disease.
2. Normal filling pressures (LVEDP = 9 mmHg at 60.8 kg).
3. No obvious coronary/ischemic cause for syncope.
-Continue metoprolol, isosorbide mononitrate, aspirin, atorvastatin.
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
-New diagnosis. - ECHO showed EF of 50%.
-Transthoracic echocardiogram yesterday revealed an LVEF of 40-50% with mid inferoseptal akinesis and moderate mid anteroseptal hypokinesis; patient denies any previous cardiac history.
-Patient complained of some chest pain yesterday; continue aspirin and heparin drip.
-Continue lisinopril, metoprolol and empagliflozin.
-no indication of ICD.
#Mild aortic stenosis:
-New diagnosis.
-Can be monitored as outpatient.
#Hypertension:
-Chronic, stable.
-Isosorbide mononitrate added yesterday.
-Hypotensive last night.
-Lisinopril held this morning.
#Hyperlipidemia
-Chronic, stable.
-Continue current dose of atorvastatin.
#Diabetes
-Chronic, stable.
-On metformin; management as per primary team.
#Moderate dementia with poor memory
-Chronic, stable.
-Daughters typically present, provide consent and background information.
-Continue donepezil.
Subjective/Interval History:
Nursing documents chest pain overnight.
Patient was highly anxious and appears to .
Hypotensive to 82/50 on 11/14/2023 @ 21:11.
Started on isosorbide mononitrate yesterday.
DATA:
CT Chest, 11/12/2023:
IMPRESSION:
There are no acute intracranial abnormalities.
There is moderate diffuse cortical atrophy with moderate nonspecific white matter changes as described above.
There is small midline posterior parietal scalp hematoma.
MRI Brain, 11/13/2023:
IMPRESSION:
There are no focal or acute intracranial abnormalities.
There is moderate cortical and cerebellar atrophy with extensive nonspecific white matter changes as described above.
Right mastoiditis.
TTE, 11/13/2023:
CONCLUSIONS
Left ventricular ejection fraction is approximately 50%. Inferoseptal akinesis.
Moderate mid anteroseptal hypokinesis.
Normal right ventricular size and function.
Mild aortic stenosis; peak/mean gradients 9/5 mmHg, calculated GIRISH 1.9 cm2.
Mild tricuspid regurgitation. Estimated pulmonary artery pressure of 35-40
mmHg.
No prior study available for comparison.
Physical Exam
Vital Signs/Labs
Vital Signs
Temp Pulse Resp BP Pulse Ox
98.0 F 74 18 154/94 97
11/16/23 08:29 11/16/23 08:29 11/16/23 08:29 11/16/23 08:29 11/16/23 08:29
11/15/23 11/16/23 11/17/23
06:59 06:59 06:59
Actual Weight 59.647 kg
11/16/23 05:43
11/16/23 05:43
APTT 103.6 Sec (23.4-35.0) H 11/15/23 06:23
Magnesium 2.0 mg/dl (1.6-2.3) 11/16/23 05:43
Triglycerides 99 mg/dl (10-149) 11/13/23 06:18
LDL Cholesterol, Calc 61 mg/dl 11/13/23 06:18
VLDL Cholesterol, Calc 19 mg/dl (0-30) 11/13/23 06:18
HDL Cholesterol 47 mg/dl 11/13/23 06:18
LAB Results
11/13/23 11/13/23 11/14/23
11:04 17:07 00:45
Troponin I 0.348 H* D 1.600 H* D 1.080 H* D
Physical Exam
Constitutional: No acute distress and Comfortable
EENT: Anicteric and Moist mucous membranes
Cardiovascular: Rhythm & rate is regular, Pedal edema is absent, JVD pressure is normal and Systolic murmur absent
Respiratory: Respiratory effort normal, Lungs clear to auscul. and Crackles Absent
GI: Soft, Non tender and Normal bowel sounds
Neuro/Psych: Alert, Oriented, AO x 3 and Motor deficits absent
Other: Cardiac Device Site
Data Reviewed
-
Date of Service: November 16, 2023
Medical Decision Making: Reviewed Test Results, Independent Historian Assessment, Test Interpretation and Review of Case with other Provider
EKG: Tracing Personally Visualized and interpreted
Echo: Report Reviewed by me
Medical Tests (PFT, Pathology etc): Discussed with Physician, Discussed with Patient and Discussed with Family
Labs: Labs Reviewed by me
Old Records: Reviewed
[2023-11-16 11:51] LABS: Glucose - Point of Care 111 mg/dl (70-99)
--- NOTE | 2023-11-16 13:04 | PTCARENOTE ---
Addendum entered by Jodi Coe RN 11/16/23 15:39:
pt back to the floor at 1415 post Pacemaker placement. aquacell is intact on L upper chest and pt is now on cholesterol lowering diet.
Original Note:
Pt wiped down with CHG wipes, and report was given.pt sent down for pacemaker in her bed and chart was sent. pt verbalizing chest pain this morning. EKG done and vitals obtained. nurse thinking reflux but cardiology and MD made aware. cardiology
assessed pt at bedside. maalox one time dose ordered. pt no longer verbalizing.
--- NOTE | 2023-11-16 13:51 | ITS.CL.PACE ---
[facility] - Pacemaker Implant
Pacemaker Implant
Procedure Report:
Dual Chamber Pacemaker Placement:
Ms. Altamirano is a very pleasant 83-year-old woman with syncope and intermittent high degree AV block is recommended for PPM placement.�
Indications: High degree AV block
Date of the Procedure: 11/16/2023
Pre-Operative Diagnosis: High degree AV block
Post-Operative Diagnosis: High degree AV block
Procedure Performed: DUAL CHAMBER PACEMAKER IMPLANTATION
Performing Physician:
Cele Bright MD
Anesthesia:
See anesthesia records
Pre-operative antibiotics:
Ancef 2gm IV
Detailed Description of the Procedure:
The patient was identified using hospital identification and informed consent obtained for the procedure. The risks were explained including, but not limited to: Bleeding, infection, arrhythmia, stroke, vascular/cardiac/lung puncture, surgery,
pacemaker dependency/device malfunction. All questions were answered.
The patient was brought to the electrophysiology laboratory in stable condition in fasting state. Continuous electrocardiographic and hemodynamic monitoring was initiated. The initial rhythm was normal sinus rhythm.
A surgical pause and time out was performed immediately prior to the procedure with review of her medical history, recent labs, allergies and medications with site of procedure identified and consent noted in the chart. Consent was also obtained
from patient's daughter and her son on the phone. Antibiotics pre operatively given. All team members concurred.
The procedure site was meticulously prepared with surgical scrub and allowed to dry with no pooling. Sterile draping was applied to cover the procedure site. The image intensifier was draped with sterile bag and positioned over the patient.
The left infraclavicular region was prepped and draped in the usual sterile fashion. Local anesthesia was administered subcutaneously using 1% lidocaine / Bupivacaine. The left cephalic vein cutdown was attempted. There was no cephalic noted.
Following infiltration with local anesthetic, the axillary vein was accessed using the fluoroscopic guidance using the micro-puncture apparatus. The vascular sheaths were introduced for lead access. The leads were advanced into the right ventricle
and the right atrium.
The right ventricular lead was secured in position with an active fixation technique at the apical septal location.
The atrial lead was placed in the right atrial appendage with passive fixation tines.
There was excellent sensing, pacing, and impedance from the leads, with no diaphragmatic stimulation at 10 V output.�Bovie cautery, antibiotics, and fluoroscopy were used.
The sheaths were withdrawn, and the thresholds remained acceptable. The leads were secured in position at the venous entry site with 0-silk. A pocket was fashioned contiguous to the incision. The electrode terminals were connected to the pulse
generator, which was placed into the pocket.
The wound was irrigated thoroughly with antibiotic solution and closed in 3 layers using 2-0 Vloc then 4-0 Vloc sutures to the dermis.
Skin Steristrips were applied externally once the skin was dry.
Procedure End:
The procedure was tolerated well.
Estimated Blood loss:
5 cc
Specimens Removed:
No cultures and no specimens were obtained. No intraoperative pathology was identified.
Fluoro time:
0.8 min / 7mGy
Urine output:
None
Packs / Drains/ Tubes:
None
Instrument / Sponge Count Correct:
Yes
Complications of the Procedure:
None
Condition of Patient at Time of Transfer:
Hemodynamically stable with no neurological or vascular compromise.
Device information:�
Generator: Clipcopia; Model: [id number]; Serial # [id number]�
Atrial Lead: [employer]ipcopia; Model: 4574-53; Serial # [id number]�
Measured data in the right atrium was sensing of 2.9 mV, impedance of 855 ohms and threshold of 0.75V at 0.4ms.
RV Lead: Medtronic; Model: 5076-58; Serial # [id number]
Measured data in the RV lead was sensing of 7.3 mV, impedance of 950 ohms and threshold of 0.5 V at 0.4ms�
Karl parameter settings were AAIR <=>DDDR 60-130 bpm. �
����������� Mode Switch: On
����������� Paced AV interval: 180ms
����������� Sensed AV interval: 150 ms.
����������� Rate Adaptive A-V Interval: Off
Output� parameters:
����������������������� Amplitude (V)������������� Pulse Width (ms)������� Sensitivity (mV)
����������� RA: ����� 3.5 ����������������� ����������� 0.4������������������ ����������� 0.3
����������� RV:������ 3.5������������������ ����������� 0.4������������������ ����������� 0.9
Summary:
Successful implantation of MRI compatible dual chamber Medtronic pacemaker
Results/Recommendations:
-Please follow up CXR�
1. Please provide patient with adequate pain control�
Instructions to be given to patient:�
- Please follow up with [facility] at [address] [place] [address] ([phone]) to get your wound checked within 14 days of your discharge.
- Do not wet incision site until after it is evaluated at cardiology clinic. No showers until then. Sponge baths are OK.�
- No swimming until cleared by the cardiology clinic.
- Do not lift left elbow above shoulder, particularly with sudden jerking movements, for 1 month�
- Do not lift anything weighing more than 10 pounds with the left arm for 1 month�
- If you notice any fevers, shortness of breath, lightheadedness, chest pain, or worsening swelling in the wound site, please contact the arrhythmia clinic, contact your juvenile justice officer, or present to the hospital for evaluation.�
Cele Bright MD
Electrophysiology
[2023-11-16 16:08] LABS: Glucose - Point of Care 138 mg/dl (70-99)
[2023-11-16] MEDS: VITAMIN D3 (cholecalciferol) 25 MCG PO (17:30)
[2023-11-16 21:33] LABS: Glucose - Point of Care 130 mg/dl (70-99)
[2023-11-16] MEDS: ANCEF 5 IV (21:39)
[2023-11-16] MEDS: ZESTRIL 10 MG PO (21:39)
[2023-11-16] MEDS: LIPITOR 40 MG PO (21:39)
[2023-11-16] MEDS: TYLENOL 650 MG PO (22:21)
[2023-11-17 03:02] VITALS: BP 162/96
[2023-11-17] MEDS: TYLENOL 650 MG PO (03:47)
[2023-11-17] MEDS: ANCEF 5 IV (05:24)
[2023-11-17 07:20] VITALS: BP 163/86
[2023-11-17 07:32] LABS: Hematocrit 32.1 % (37.0-47.0); Hemoglobin 10.7 g/dL (12.0-16.0); Mean Corp Hgb Conc. 33.3 g/dL (33.0-37.0); Mean Corpuscular Hgb 30.7 pg (27.0-31.0); Mean Corpuscular Volume 92.2 fL (81.0-99.0); Mean Platelet Volume 11.2 fL (7.4-10.4); Platelet Count 117 10^3/uL (130-400); Red Blood Cell Count 3.48 10^6/uL (4.20-5.40); Red Cell Dist. Width 13.6 % (11.5-14.5)
[2023-11-17 07:44] LABS: Blood Urea Nitrogen 24 mg/dl (7-17); Calcium 9.1 mg/dl (8.4-10.2); Carbon Dioxide 22 mmol/L (22-30); Chloride 108 mmol/L (98-107); Estimated Creatinine Clearance 50 ml/min; Glucose 87 mg/dl (70-99); Magnesium 2.2 mg/dl (1.6-2.3); Potassium 4.5 mmol/L (3.5-5.1); Sodium 140 mmol/L (135-145); eGFR > 60.00
--- NOTE | 2023-11-17 08:04 | W.PN.CD ---
Addendum entered and electronically signed by Yuri Mccormick MD 12/02/23 13:38:
Asked to clarify. patient with high degree AV block. Description of high degree AV block suggesting at least second degree AV block seen.
Addendum entered and electronically signed by Yuri Mccormick MD 11/17/23 09:06:
office visit with Miriam SIEGEL including incision check 11/22/23 at [facility] at [address] [place] [address]
Original Note:
Today's Communication / Plan
-
stable post pacemaker
will need dressing removed in one week - she will be in [facility]. will arrange incision check but [facility] follow up will be near her home in [place]. Family will be getting her a local senior product development manager.
continue current therapy
ambulate . if feeling well and resp status stable with ambulation then she is ok for discharge from a cardiology standpoint
Impression / Plan
-
Impression/Plan: 83-year-old female with hypertension, hyperlipidemia, diabetes, previous right breast cancer, and moderate dementia presenting after syncopal episode after driving with her family for 4-1/2 hours from [place], [place], found have
hypertensive urgency (SBP > 200 mmHg), elevated troponin and new cardiomyopathy.
#Syncope/PVCs/abnormal telemetry:
-Acute.
-Etiology of syncope unclear, but highly concerning for a cardiac event/dysrhythmia; differential diagnosis also includes seizure (Neurology consulted--no acute findings on head CT or MRI).
-High degree AV block noted on cath table with hx of syncope. Seen by EP and pacmaker implanted 11/17/23
-NSVT noted. discussed with patient and the son (phone) and daughter at bed side, ICD may not be needed as NSVT may be due to her bradycardia and manifestation of conduction disease.
-Continue current dose of Toprol-XL
-EP Cardiology to evaluate patient after cardiac catheterization; patient may need a pacemaker (pauses) versus ICD (secondary prevention).
s/p pacemaker
- dressing intact. no significant swelling. site looks fine
NSVT - Reviewed by EP see Dr Bright note. Bradycardia may have played a role
- pacmaker implanted
- continue Toprol
#Troponin leak
-Non-DE troponin leak .
-Troponin peaked at 1.600.
-TTE shows regional wall motion abnormalities but cath showed no CAD
- [facility] - 11/15/23- Right dominant circulation with mild luminal irregularities in the proximal LAD but no obstructive coronary artery disease.
2. Normal filling pressures (LVEDP = 9 mmHg at 60.8 kg).
3. No obvious coronary/ischemic cause for syncope.
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
-Transthoracic echocardiogram revealed an LVEF of 40-50% with mid inferoseptal akinesis and moderate mid anteroseptal hypokinesis; patient denies any previous cardiac history.
-Continue lisinopril, metoprolol and empagliflozin.
- resp status stable
#Mild aortic stenosis:
-New diagnosis.
-Can be monitored as outpatient.
#Hypertension:
-Chronic, stable.
-Isosorbide mononitrate added yesterday.
-Hypotensive last night.
-Lisinopril held this morning.
#Hyperlipidemia
-Chronic, stable.
-Continue current dose of atorvastatin.
#Diabetes
-Chronic, stable.
-On metformin; management as per primary team.
#Moderate dementia with poor memory
-Chronic, stable.
-Daughters typically present, provide consent and background information.
-Continue donepezil.
Subjective/Interval History:
Nursing documents chest pain overnight.
Patient was highly anxious and appears to .
Hypotensive to 82/50 on 11/14/2023 @ 21:11.
Started on isosorbide mononitrate yesterday.
DATA:
CT Chest, 11/12/2023:
IMPRESSION:
There are no acute intracranial abnormalities.
There is moderate diffuse cortical atrophy with moderate nonspecific white matter changes as described above.
There is small midline posterior parietal scalp hematoma.
MRI Brain, 11/13/2023:
IMPRESSION:
There are no focal or acute intracranial abnormalities.
There is moderate cortical and cerebellar atrophy with extensive nonspecific white matter changes as described above.
Right mastoiditis.
TTE, 11/13/2023:
CONCLUSIONS
Left ventricular ejection fraction is approximately 50%. Inferoseptal akinesis.
Moderate mid anteroseptal hypokinesis.
Normal right ventricular size and function.
Mild aortic stenosis; peak/mean gradients 9/5 mmHg, calculated GIRISH 1.9 cm2.
Mild tricuspid regurgitation. Estimated pulmonary artery pressure of 35-40
mmHg.
No prior study available for comparison.
Physical Exam
Vital Signs/Labs
Vital Signs
Temp Pulse Resp BP Pulse Ox
98.2 F 73 16 163/86 96
11/17/23 07:20 11/17/23 07:20 11/17/23 07:20 11/17/23 07:20 11/17/23 07:20
11/16/23 11/17/23 11/18/23
06:59 06:59 06:59
Actual Weight 59.647 kg
11/17/23 06:51
11/17/23 06:51
APTT 103.6 Sec (23.4-35.0) H 11/15/23 06:23
Magnesium 2.2 mg/dl (1.6-2.3) 11/17/23 06:51
Triglycerides 99 mg/dl (10-149) 11/13/23 06:18
LDL Cholesterol, Calc 61 mg/dl 11/13/23 06:18
VLDL Cholesterol, Calc 19 mg/dl (0-30) 11/13/23 06:18
HDL Cholesterol 47 mg/dl 11/13/23 06:18
Physical Exam
Constitutional: No acute distress
Cardiovascular: Rhythm & rate is regular and Other (pacer site fine. dressing intact)
Respiratory: Respiratory effort normal
GI: Soft
Neuro/Psych: Alert
Data Reviewed
-
Date of Service: November 17, 2023
Medical Decision Making: Reviewed Test Results
Medical Tests (PFT, Pathology etc): Report Reviewed by me
Labs: Labs Reviewed by me
[2023-11-17 08:08] LABS: Glucose - Point of Care 82 mg/dl (70-99)
[2023-11-17] MEDS: NOVOLOG FLEXPEN-LOW RESISTANCE SC (08:11)
[2023-11-17] MEDS: OSCAL 500 + D 500 MG PO (09:01)
[2023-11-17] MEDS: B COMPLEX w/VITAMIN C 1 CAPLET PO (09:01)
[2023-11-17] MEDS: IMDUR (EXTENDED RELEASE) 30 MG PO (09:01)
[2023-11-17] MEDS: ASPIR LOW (ENTERIC COATED) 81 MG PO (09:01)
[2023-11-17] MEDS: ARICEPT 10 MG PO (09:02)
[2023-11-17] MEDS: JARDIANCE 10 MG PO (09:02)
[2023-11-17] MEDS: VITAMIN C 500 MG PO (09:02)
[2023-11-17] MEDS: TOPROL XL 25 MG PO (09:02)
[2023-11-17] MEDS: ARIMIDEX 1 MG PO (09:02)
--- NOTE | 2023-11-17 09:17 | W.PN.HOSP.TC ---
Today's Communication/Plan
-
OK for DC today
Assessment / Plan
Assessment / Plan
Physical Exam
General: Not in acute distress
HEENT: Normocephalic
Respiratory: Clear to Auscultation Bilaterally
Cardiac: S1/S2 and Regular Rhythm
GI: Soft, Non Tender, Non Distended, Normal Bowel Sounds
Musculoskeletal: No Cyanosis and No Edema
Skin: Warm and Dry
Neuro: Awake, Alert, Reduced memory, PERRL. Cranial Nerves 2 through 12 grossly intact. Strength and sensation grossly intact bilaterally. Heel to dee intact bilaterally.
Psych: Calm
Cardiac Cath 11/15/23
CONCLUSIONS
1. Right dominant circulation with mild luminal irregularities in the proximal LAD but no obstructive coronary artery disease.
2. Normal filling pressures (LVEDP = 9 mmHg at 60.8 kg).
3. No obvious coronary/ischemic cause for syncope.
RECOMMENDATIONS:
1. Expectant management after cardiac catheterization via right radial approach.
2. Limited weight bearing on the right wrist for one week.
3. Consultation with electrophysiology regarding need for permanent pacemaker versus ICD versus EP study.
TTE 11/13/23
CONCLUSIONS
Left ventricular ejection fraction is approximately 50%. Inferoseptal akinesis.
Moderate mid anteroseptal hypokinesis.
Normal right ventricular size and function.
Mild aortic stenosis; peak/mean gradients 9/5 mmHg, calculated GIRISH 1.9 cm2.
Mild tricuspid regurgitation. Estimated pulmonary artery pressure of 35-40
mmHg.
No prior study available for comparison.
BRAIN MRI 11/13/23
IMPRESSION:
There are no focal or acute intracranial abnormalities.
There is moderate cortical and cerebellar atrophy with extensive nonspecific white matter changes as described above.
Right mastoiditis
Assessment/Plan
#Unwitnessed fall concern for cardiac arrhythmia given multiple PVCs
#Inferoseptal Akinesis on Echocardiogram
#Frequent Premature Ventricular Contractions and Pauses on Tele, high degree AV block noted on cath table
-s/p heparin gtt initiation (cleared by neurology) and cardiac cath on 11/14 without obstructive disease
-Continue Aspirin
-EEG of unclear benefit as per neuro given the fact that patient is suspected to have had myocardial infarction which may have produced convulsive syncope
-TTE results above
-MRI brain without any structural causes that would produce patient's presenting symptoms
-Consulted neurology, recommendations appreciated
-Consulted cardiology, recommendations appreciated
-s/p PPM on 11/15 - good for DC per cardiology standpoint
#Chest discomfort this morning
-cardiac cath without obstructive disease
#Mild mitral stenosis on echocardiogram
#Hypertension
-BP was 201/116 initially
-Continue Lisinopril 10 mg daily
#DM 2
-Accu-Cheks SSI, check HgbA1c
-Hold metformin post cath
#Acute thrombocytopenia unclear
-Platelets 117-->111-->122
-Monitor CBC
#Dementia Hx-moderate Dx October 2022
-Continue Aricept/Donepezil 10 mg daily
#Hyperlipidemia
-Continue Lipitor 40 mg at bedtime
#Breast Cancer
-Patient on current tamoxifen
DVT prophylaxis
SCDs
DNR
Spoke to patient's daughter today inside patient's room.
51 minutes spent on patient evaluation, medical decision making and coordination of care
Anticipated Discharge: Today
Subjective/Interval History
-
Date of Service: November 17, 2023
feeling well
wants to go home
Objective Data
-
Labs:
Laboratory Results
11/17/23
06:51
WBC 6.0
Hgb 10.7 L
Hct 32.1 L
Plt Count 117 L
Sodium 140
Potassium 4.5
Chloride 108 H
Carbon Dioxide 22
BUN 24 H
Creatinine 0.8
Glucose 87
Calcium 9.1
Vital Signs:
Vital Signs
Temp Pulse Resp BP Pulse Ox
98.2 F 73 16 163/86 96
11/17/23 07:20 11/17/23 07:20 11/17/23 07:20 11/17/23 07:20 11/17/23 07:20
I&O
11/16/23 11/17/23 11/18/23
06:59 06:59 06:59
Intake Total 2179.5 / 2179.5 840 / 840
Balance 2179.5 / 2179.5 840 / 840
Review of Systems
-
History Source: Patient
All other systems: Reviewed and negative
Physical Exam
-
General: No Apparent Distress
HEENT: PERRLA
Respiratory: Clear to Auscultation and Other ([facility] site c/d/i); Negative Wheezes
Cardiac: Regular Rhythm and S1/S2
GI: Soft and Nontender
Musculoskeletal: No Edema
Skin: Warm and Dry; Negative Rash
Neuro: AO x 3
Psych: Calm and Anxious
Data Reviewed
-
Diagnostic Radiology: Report Reviewed by me
Labs: Labs Reviewed by me
--- NOTE | 2023-11-17 09:25 | W.DS.TRANS ---
DC Summary - Endoscope Technician
-
Discharge Instructions:
Discharge Diagnosis/Procedures NSTEMI, s/p cardiac catheterization, Pacemaker
implant 11/15
Diet Regular
Activity As tolerated
Driving Restrictions No driving for 1 week
Bathing Restrictions OK to Shower
Instructions:
Stand-Alone Forms: DC Instructions- Cath/EP Lab
DC Inst - Implanted Device
Changes to Home Medications: Yes
Discharge Medications:
DC Medications w/original date entered in [facility] [employer]
Calcium Citrate + D3 950/250mg 1 tab PO BID Supplement 11/12/23
acetaminophen 650 mg tablet,extended release 650 mg PO [id number] PRN mild pain 11/12/23
anastrozole 1 mg tablet 1 mg PO DAILY BREAST CANCER 11/12/23
ascorbic acid (vitamin C) 500 mg tablet (Vitamin C With Karlie Hips) 500 mg PO DAILY Supplement 11/12/23
atorvastatin 40 mg tablet 40 mg PO HS Supplement 11/12/23
cholecalciferol (vitamin D3) 25 mcg (1,000 unit) tablet (Vitamin D3) 25 mcg PO QPM Supplement 11/12/23
donepezil 10 mg tablet 10 mg PO DAILY Neurological Condition 11/12/23
lisinopril 10 mg tablet 10 mg PO HS Blood Pressure 11/12/23
vitamin B complex 1 cap PO DAILY Supplement 11/12/23
vitamin E 268 mg (400 unit) capsule 268 mg PO QPM Supplement 11/12/23
aspirin 81 mg tablet,delayed release 81 mg PO DAILY #30 tabs 11/17/23
empagliflozin 10 mg tablet (Jardiance) 10 mg PO DAILY #30 tabs 11/17/23
isosorbide mononitrate 30 mg tablet,extended release 24 hr 30 mg PO DAILY #30 tabs 11/17/23
metformin 500 mg tablet 1,000 mg (2 x 500 mg) PO BID Diabetes #1 tab 11/17/23
metoprolol succinate 25 mg tablet,extended release 24 hr 25 mg PO DAILY #30 tabs 11/17/23
Home Medication Changes
You are newly started on:
Aspirin 81mg daily
Imdur 30mg daily
Jardiance 10mg daily
Metoprolol XL 25mg daily
Pending Results: No
[2023-11-17 11:10] VITALS: BP 110/58
[2023-11-17 11:20] LABS: Glucose - Point of Care 192 mg/dl (70-99)
--- NOTE | 2023-11-17 12:07 | CM ---
Addendum entered by Natalie Alba 11/17/23 14:30:
daughter cynthia is requesting that patient would like home pt.referrals sent to [facility] for home pt.she is staying with her daugher in [place].
Addendum entered by Natalie Alba 11/17/23 12:09:
daughter who is poa signed imm letter.
Original Note:
met with patient and her daughter.patient is sp ppm and has declined a vn.daughter to transport home.
[2023-11-17] MEDS: NOVOLOG FLEXPEN-LOW RESISTANCE 1 UNITS SC (12:30)
[2023-11-17 12:42] VITALS: BP 102/57; BP 127/73; PULSE 68; O2SAT 96
--- NOTE | 2023-11-17 13:45 | W.DCSUMMARY ---
Addendum entered and electronically signed by Sherine Krueger MD 11/24/23 13:51:
discharge diagnosis is not NSTEMI but non-ischemic myocardial injury
Original Note:
Discharge Summary
Discharge Data
Date of Admission: 11/16/23
Date of Discharge: 11/17/23
-
Pending Results: No
Hospital Course
Discharging Physician : Dr. Sherine Krueger
Disposition : Home (to daughter x 1 week)
Principal Discharge diagnosis : Pacemaker implant 11/15
Hospital Course :
Ms. Coty Altamirano is a 83 yo woman with hx HLD, DM2, breast cancer, mild/moderate dementia who lives in [place], [place] and was here visiting daughter when had sudden syncope with following confusion. Patient was admitted to medicine, monitored on
telemetry with Cardiology and Neurology consulting given concern for arrhythmia versus seizure. Brain MRI without focal or acute intracranial abnormalities. Telemetry monitoring showed frequent PVC's and non-conducted P waves. Troponin peaked at
1.6. TTE with mild , mild TR, LVEF 50% with inferoseptal akinesis. She underwent a cardiac cath on 11/14 with finding of mild luminal irregularities in proximal LAD, no obstructive coronary artery disease. High degree AV block noted. Post
procedure patient referred to EP for PPM which was placed morning of 11/16/23. Patient was observed one more night, stable. She has follow up with [facility] Soto 11/22/23 and will then establish herself with a burial vault maker in [place].
At discharge patient is newly started on:
Aspirin 81mg daily
Imdur 30mg daily
Jardiance 10mg daily
Metoprolol XL 25mg daily
Time spent on discharge 35 minutes.
Important imaging findings :
TTE 11/13/23
CONCLUSIONS
Left ventricular ejection fraction is approximately 50%. Inferoseptal akinesis.
Moderate mid anteroseptal hypokinesis.
Normal right ventricular size and function.
Mild aortic stenosis; peak/mean gradients 9/5 mmHg, calculated GIRISH 1.9 cm2.
Mild tricuspid regurgitation. Estimated pulmonary artery pressure of 35-40
mmHg.
No prior study available for comparison.
BRAIN MRI 11/13/23
IMPRESSION:
There are no focal or acute intracranial abnormalities.
There is moderate cortical and cerebellar atrophy with extensive nonspecific white matter changes as described above.
Right mastoiditis
Procedure findings :
Cardiac Cath 11/15/23
CONCLUSIONS
1. Right dominant circulation with mild luminal irregularities in the proximal LAD but no obstructive coronary artery disease.
2. Normal filling pressures (LVEDP = 9 mmHg at 60.8 kg).
3. No obvious coronary/ischemic cause for syncope.
RECOMMENDATIONS:
1. Expectant management after cardiac catheterization via right radial approach.
2. Limited weight bearing on the right wrist for one week.
3. Consultation with electrophysiology regarding need for permanent pacemaker versus ICD versus EP study.
Discharge Plan
-
Patient Disposition: Home (Routine Discharge)
Discharge Diagnosis/Procedures: NSTEMI, s/p cardiac catheterization, Pacemaker implant 11/15
Diet: Regular
Activity: As tolerated
Driving Restrictions: No driving for 1 week
Bathing Restrictions: OK to Shower
Stand Alone Forms: DC Instructions- Cath/EP Lab, DC Inst - Implanted Device
Referrals:
Mariela Bee NP [Specified Professional Personl] - 11/25/23 10:00 am (Incision check appointment)
Additional Discharge Medication Instructions: HOLD metformin post cath- OK to resume on Wed
You are newly started on:
Aspirin 81mg daily
Imdur 30mg daily
Jardiance 10mg daily
Metoprolol XL 25mg daily
Prescriptions:
New
isosorbide mononitrate 30 mg Tablet Extended Release 24 Hr
30 mg PO DAILY Qty: 30 0RF
Jardiance 10 mg Tablet
10 mg PO DAILY Qty: 30 0RF
aspirin 81 mg Tablet,Delayed Release (Dr/Ec)
81 mg PO DAILY Qty: 30 0RF
metoprolol succinate 25 mg Tablet Extended Release 24 Hr
25 mg PO DAILY Qty: 30 0RF
Continued
atorvastatin 40 mg Tablet
40 mg PO HS
anastrozole 1 mg Tablet
1 mg PO DAILY
donepezil 10 mg Tablet
10 mg PO DAILY MDD DEMENTIA
acetaminophen 650 mg Tablet Extended Release
650 mg PO D48OLET PRN (Reason: mild pain)
ascorbic acid (vitamin C) [Vitamin C With Karlie Hips] 500 mg Tablet
500 mg PO DAILY
lisinopril 10 mg Tablet
10 mg PO HS
vitamin E 268 mg (400 unit) Capsule
268 mg PO QPM
vitamin B complex Capsule
1 cap PO DAILY
cholecalciferol (vitamin D3) [Vitamin D3] 25 mcg (1,000 unit) Tablet
25 mcg PO QPM
Calcium Citrate + D3 950/250mg 950 mg/250 mg tablet
1 tab PO BID
metformin 500 mg Tablet
1,000 mg PO BID Qty: 1 0RF
Rx Instructions:
OK to resume evening of 11/17/23
Discharge Orders:
Discharge Patient (As Directed); Ordered 11/17/23
Ordered By: Sherine Krueger
Discharge Date and Time
Print Language: ANGOLAN
--- NOTE | 2023-11-18 12:42 | VNURNOTE ---
Home Health Liaison follow up on referral [facility].
Call to dgt Vanessa on 11/17 to follow up, and dgt is now declining need for services, patient is ambulatory and aware of follow up appointments.
Referral cancelled.
--- NOTE | 2023-11-23 15:52 | PN.CDI ---
CDI
- -
CDI:
Physician Documentation Request
Admit Date: 11/16/23 09:13
Dear Doctor Pati,
Please review the following and provide your response in the progress notes.
Clinical Indicators:
Pt admitted with syncope and and acute systolic heart failure
11/11 cardiac catherization conclusion: Right dominant circulation with mild luminal irregularities in the proximal LAD but no obstructive coronary artery disease....No obvious coronary/ischemic cause for syncope.
11/16 Cardiology note: 'Non-[place] troponin leak.'
11/16 Discharge summary: 'Discharge Diagnosis/Procedures: NSTEMI, s/p cardiac catheterization, Pacemaker implant 11/15'
Due to the possible conflicting documentation , could you please clarify in the progress notes, the appropriate diagnosis, if significant, that supports the above abnormalities and additional evaluation, monitoring and/or treatment rendered:
non-ischemic myocardial injury
NSTEMI
Other
Use of terms such as suspected, likely, concern for, or probable (associated with a specific diagnosis that is being evaluated, monitored, or treated as if it exists) are acceptable and can be coded in the inpatient setting, when documented at the
time of discharge.
Thank you,
Elizabeth Sierra RN, BSN
CDI Specialist
Available via [place] [employer]
Please use your independent medical judgment in providing your response.
--- NOTE | 2023-11-23 16:14 | PN.CDI ---
CDI
- -
CDI:
Physician Documentation Request
Admit Date: 11/16/23 09:13
Dear Doctor Anny,
Please review the following and provide your response in the progress notes.
Clinical Indicators:
Pt admitted with syncope and acute systolic heart failure
11/14 cardiac catherization: No obvious coronary/ischemic cause for syncope...
11/16 Cardiology note: 'new cardiomyopathy...High degree AV block noted on cath table with hx of syncope. Seen by EP and pacmaker implanted 11/17/23
-NSVT noted. discussed with patient and the son (phone) and daughter at bed side, ICD may not be needed as NSVT may be due to her bradycardia and manifestation of conduction disease.'
Based on the above, could you clarify in the progress notes, the degree of heart block known or suspected, that supports the above abnormalities and additional evaluation, monitoring and/or treatment rendered:
2nd degree heart block
3rd degree Heart block
Other
Unable to determine
Use of terms such as suspected, likely, concern for, or probable (associated with a specific diagnosis that is being evaluated, monitored, or treated as if it exists) are acceptable and can be coded in the inpatient setting, when documented at the
time of discharge.
Thank you,
Elizabeth Sierra RN, BSN
CDI Specialist
Available via [place] [employer]
Please use your independent medical judgment in providing your response.
== END 2023-11-17 15:07 | disposition home health service (06) | DRG 242 ==
LOC: 2 NORTH 09:13
PROVIDERS: Clinical Nurse Specialist Family Health; Hospitalist; Internal Medicine Cardiovascular Disease; Nurse Practitioner; Nurse Practitioner Adult Health; Nurse Practitioner Family; Nurse Practitioner Gerontology; Physician Assistant; ADMITTING PHYSICIAN Hospitalist; ATTENDING PHYSICIAN Student in an Organized Health Care Education/Training Program; CONSULT PHYSICIAN Internal Medicine; CONSULT PHYSICIAN Otolaryngology Facial Plastic Surgery; CONSULT PHYSICIAN Psychiatry & Neurology Neurology; EMERGENCY PHYSICIAN Emergency Medicine
PROC: B2111ZZ Fluoroscopy of Multiple Coronary Arteries using Low Osmolar Contrast (ICD-10-PCS; 2023-11-15)
PROC: 4A023N7 Measurement of Cardiac Sampling and Pressure, Left Heart, Percutaneous Approach (ICD-10-PCS; 2023-11-15)
PROC: 02HK3JZ Insertion of Pacemaker Lead into Right Ventricle, Percutaneous Approach (ICD-10-PCS; 2023-11-16)
PROC: 02H63JZ Insertion of Pacemaker Lead into Right Atrium, Percutaneous Approach (ICD-10-PCS; 2023-11-16)
PROC: 0JH606Z Insertion of Pacemaker, Dual Chamber into Chest Subcutaneous Tissue and Fascia, Open Approach (ICD-10-PCS; 2023-11-16)
DX: I44.1 Atrioventricular block, second degree (principal); I50.21 Acute systolic (congestive) heart failure; F03.B3 Unspecified dementia, moderate, with mood disturbance; F05 Delirium due to known physiological condition; R00.1 Bradycardia, unspecified; I42.8 Other cardiomyopathies; E78.00 Pure hypercholesterolemia, unspecified; E11.9 Type 2 diabetes mellitus without complications; F32.9 Major depressive disorder, single episode, unspecified; R94.31 Abnormal electrocardiogram [ECG] [EKG]; S00.03XA Contusion of scalp, initial encounter; W19.XXXA Unspecified fall, initial encounter; I49.3 Ventricular premature depolarization; D69.6 Thrombocytopenia, unspecified; Z66 Do not resuscitate; C50.919 Malignant neoplasm of unspecified site of unspecified female breast; H70.891 Other mastoiditis and related conditions, right ear; R79.89 Other specified abnormal findings of blood chemistry; I47.20 Ventricular tachycardia, unspecified; I16.0 Hypertensive urgency; I08.3 Combined rheumatic disorders of mitral, aortic and tricuspid valves; I11.0 Hypertensive heart disease with heart failure; M25.511 Pain in right shoulder; M25.531 Pain in right wrist; Z87.891 Personal history of nicotine dependence; Z79.84 Long term (current) use of oral hypoglycemic drugs
CPT/HCPCS: 33208; 70450; 70553; 71045; 73030; 73110; 80048; 80053; 80061; 81003; 81015; 82607; 82728; 82746; 82962; 83036; 83735; 84443; 84484; 85025; 85027; 85652; 85730; 93005; 93306; 93458; 96374; 96375; 97163; 97166; 97530; 99285; A9575; C1785; C1892; C1894; C1898; Q9967